=== PATIENT | female | born 1945 | race American Indian/Alaskan Native ===

== ENCOUNTER 2016-08-30 18:07 | Emergency (ER) | payer MEDICARE ==
[2016-08-30 18:45] VITALS: BP 145/86
--- NOTE | 2016-08-30 19:21 | UC ---
Minor Trauma HPI - HPI Summary HPI Summary: 71 yo female tripped and fell in living room this afternoon no LOC c/o left cheek pain and left knee pain no neck pain - History of Current Complaint Chief Complaint: UCHeadInjury Stated Complaint: FACIAL INJURY S/P FALL Time Seen by Provider: 08/30/16 19:05 Hx Obtained From: Patient Onset/Duration: Sudden Onset, Lasting Hours Onset Of Pain: Immediate Severity Initially: Moderate Severity Currently: Moderate Pain Intensity: 4 Pain Scale Used: 0-10 Numeric Mechanism Of Injury: Fall From A Standing Position Aggravating Factor(s): Ambulation Alleviating Factor(s): Rest Associated Signs And Symptoms: Positive: Ecchymosis, Swelling - Allergies/Home Medications Allergies/Adverse Reactions: Allergies Allergy/AdvReac Type Severity Reaction Status Date / Time Morphine Allergy Hives Verified 08/30/16 18:45 Penicillins AdvReac Intermediate See Comment Verified 08/30/16 18:45 PMH/Surg Hx/FS Hx/Imm Hx Previously Healthy: No Cancer History: Other Other Cancer History: renal/thyroid - Surgical History Surgical History: Yes Surgery Procedure, Year, and Place: 1994 RIGHT NEPHRECTOMY- [facility]. 2010 THYROID REMOVAL- [facility]. 1988 GALL BLADDER REMOVAL. BLADDER NECK LIFT- [facility]. HYSTERECTOMY/ APPENDECTOMY-[facility] - Social History Alcohol Use: None Substance Use Type: None Smoking Status (MU): Former Smoker Amount Used/How Often: 1 PPD/ 10 YEARS When Did the Patient Quit Smoking/Using Tobacco: AGE 29 Review of Systems Constitutional: Negative Skin: Bruising Eyes: Negative ENT: Negative Respiratory: Negative Cardiovascular: Negative Gastrointestinal: Negative Genitourinary: Negative Motor: Negative Neurovascular: Negative Musculoskeletal: Arthralgia Neurological: Negative Psychological: Negative All Other Systems Reviewed And Are Negative: Yes Physical Exam Triage Information Reviewed: Yes Appearance: Well-Appearing, No Pain Distress, Well-Nourished Vital Signs: Initial Vital Signs Temp 98.5 F 08/30/16 18:38 Pulse 82 08/30/16 18:38 Resp 18 08/30/16 18:38 BP 145/86 08/30/16 18:38 Pulse Ox 98 08/30/16 18:38 Vital Signs Reviewed: Yes Eyes: Positive: Conjunctiva Clear, Other: - perrl/eomi ENT: Positive: Hearing grossly normal, TMs normal. Negative: Nasal congestion, Nasal drainage Dental Exam: Normal - now jaw malocclusion Dental: Negative: Dental Fracture @ Neck: Positive: Supple, Nontender, No Lymphadenopathy Respiratory: Positive: Lungs clear, Normal breath sounds, No respiratory distress, No accessory muscle use Cardiovascular: Positive: RRR, Pulses Normal. Negative: Tachycardia, Bradycardia Neurological: Positive: Alert, Other: - cn2-12 intact, GCS 15/15, strenght 5/5 Psychological Exam: Normal Skin Exam: Other - lac left cheek, large hematoma Procedures - Laceration/Wound Repair 1 Location: face Description: Linear Betadine Prep?: No Irrigated w/ Saline (ccs): 60 Laceration/Wound Explored: clean Closure: SteriStrips Minor Trauma Course/Dx - Differential Dx/Diagnosis Provider Diagnoses: fall. left facial hematoma. left cheek laceration (steri strip repair). left knee contusion Discharge - Discharge Plan Condition: Stable Disposition: HOME Patient Education Materials: Contusion in Adults (ED), Steristrips (ED), Hematoma (ED) Referrals: Cedric Sandoval MD [Primary Care Provider] - Additional Instructions: return for any problems call for any questions you may gently remove the steristrips in a week if they are still on Images Head: 1 - lg hematoma 2 - lac Front/Back of Body, Lg (Chaves): 1 - tender
--- NOTE | 2016-08-30 20:41 | RAD ---
Indication: Soft tissue swelling at the LEFT cheek and malar eminence following injury. Comparison: No relevant prior exams available on the [facility] [place] for comparison. Technique: AP, [place], [place], lateral views of the skull. Report: The orbital margins, maxillary sinus margins, and zygomatic arches appear intact. Unremarkable nasal bones on the lateral view. Normal alignment of the jaws. Dental amalgam. Normally aerated paranasal sinuses. IMPRESSION: No maxillofacial fracture evident.
--- NOTE | 2016-08-30 20:43 | RAD ---
Indication: LEFT knee abrasions and soft tissue swelling following injury. Comparison: No relevant prior exams available on the [facility] PACS for comparison. Technique: LEFT knee: AP, tunnel, crosstable lateral, sunrise views. Report: Normal alignment. Negative for effusion or fracture. Negative for joint space narrowing or other arthropathic change. Unremarkable soft tissue contours. Bone density appears decreased throughout. Suggestion of diffuse skeletal muscle atrophy. IMPRESSION: 1. No traumatic injury evident. 2. Bone density appears decreased throughout. Consider follow-up DEXA scan if not previously performed.
== END 2016-08-30 20:35 | disposition home or self-care (01) ==
LOC: UCCORT 18:07
DX: S01.412A Laceration without foreign body of left cheek and temporomandibular area, initial encounter (principal); W01.0XXA Fall on same level from slipping, tripping and stumbling without subsequent striking against object, initial encounter; Y93.9 Activity, unspecified; Y92.9 Unspecified place or not applicable; Y99.9 Unspecified external cause status; S80.02XA Contusion of left knee, initial encounter; S00.83XA Contusion of other part of head, initial encounter; Y92.018 Other place in single-family (private) house as the place of occurrence of the external cause; Z90.5 Acquired absence of kidney; Z87.891 Personal history of nicotine dependence; E89.0 Postprocedural hypothyroidism
CPT/HCPCS: 12011; 70150; 99211; 99212; G0463

== ENCOUNTER 2018-04-04 14:02 | Inpatient (IN) | payer MEDICARE ==
--- OUTSIDE RECORDS SUMMARY | 2018-04-04 15:06 | XMS REPORT | Continuity of Care Document ---
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 Cedric Sandoval MD Primary Care Physician Unavailable Payers Type Date Identification Numbers Payment Provider Subscriber Policy Number: [id number] [employer] [facility] Emmaleslee Cronin PayID: [id number] [address] [address] [place] [address] Advance Directives Description No Information Available Problems Date Description Provider Status Onset: 01/05/2017 Benign essential hypertension Palma Cotto MD Active Onset: 01/23/2018 Chronic systolic (congestive) Tyree Claros M.D., Active heart failure FACC Onset: 01/23/2018 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., Active FACC Onset: 05/02/2017 Other cardiomyopathies Mulugeta Bowens PA Active Onset: 05/02/2017 Paroxysmal atrial fibrillation Mulugeta Bowens PA Active Onset: 05/02/2017 Acute on chronic systolic heart Mulugeta Bowens PA Active failure Family History Date Family Member(s) Problem(s) Comments Father CHF Mother Alzheimer's Disease Social History Type Date Description Comments Sex Unknown Lives With Diet Patient follows no dietary restrictions ADL's/IADL's Independent with all ADL's Tobacco Use Start: Unknown End: Unknown Former Cigarette Smoker 2 years Smoking Status Reviewed: 03/14/18 Former Cigarette Smoker 2 years ETOH Use Denies alcohol use Allergies, Adverse Reactions, Alerts Date Description Reaction Status Severity Comments 01/05/2017 Penicillin yeast infection Active 01/05/2017 Morphine Urticaria Active Medications Medication Date Status Form Strength Qnty SIG Indications Ordering Provider Losartan 03/14/ Active Tablets 25mg 30tabs 1 by mouth Lili Cotto 2018 every day MD Palma Levothyroxine 02/03/ Active Tablets 137mcg 30tabs 1 tab daily Jaime Cotto 2018 in am at MD Palma least 30 min before breakfast Bisoprolol 07/15/ Active Tablets 5mg 45tabs 1/2 by Yadiel Fumarate 2018 mouth every MD Palma day at bedtime Fish Oil / Active Capsules 1000mg by mouth Unknown 0000 every day Vitamin D3 / Active Capsules 5000Unit 1 by mouth Unknown 0000 three times daily Vitamin C / Active Tablets 1000mg 1 tsp Unknown 0000 three times daily Red Yeast Rice / Active Capsules 1140mg 1 po twice Unknown 0000 daily Flax Seed Oil / Active Capsules 2000mg 1 po daily Unknown 0000 Vitamin B-12 / Active Tablets 500mcg 2 drops Unknown 0000 Sub daily Frankincense / Active Oil 4 drops Unknown Uplifting 0000 daily Iodine Strong / Active Solution 3 drops Unknown (Lugol's) 0000 daily in tea Bovine Thyroid / Active 130mg 1 po every Unknown 0000 other day Metformin HCL / Active Tablets 1000mg 1 by mouth Unknown 0000 twice daily Magnesium / Active Tablets 250mg 1 tabs by Unknown 0000 mouth tid Lysine / Active Capsules 500mg 1 capsule Unknown 0000 three times weekly. Zinc / Active Tablets 25mg 1 po three Unknown 0000 times daily Spirulina / Active Tablets 800mg 1 po three Unknown 0000 times daily Cranberry / Active Tablets 1 po three Unknown 0000 times daily Vitamin E / Active Capsules 400Iu 1 tid daily Unknown Complete 0000 Melatonin + / Active Capsules 6mg 2 daily Unknown L-Theanine 0000 Liothyronine / Active Tablets .15mcg take one Unknown Sodium 0000 daily Furosemide / Active Tablets 20mg 4 tab by I50.23 Unknown 0000 mouth in the morning with 2 extra tablet at noon as needed for weight gain >3 lbs or edema I42.8 Losartan Potassium 09/22/2017 Hx Tablets 50mg 14tabs 1 by mouth I42.8 Mirna Mera 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, 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, 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 I42.8 Valsartan 09/20/2017 - Hx Tablets 40mg 60tabs 1 by mouth I42.8 Tyree Claros 09/22/2017 twice daily Rashaun Pena, [facility] I42.8 Bisoprolol 05/10/2017 - Hx Tablets 10mg 45tabs 1/2 tab by Yadiel, Jhonatan 07/15/2017 mouth every MD Palma night at bedtime Bisoprolol 05/04/2017 - Hx Tablets 5mg 90tabs 1/2 by mouth Jhonatan Cotto 05/10/2017 twice daily MD Palma Furosemide 05/02/2017 Hx Tablets 20mg 180tabs 2 tab by I50.2 tato Claros in the 3 Tyree M., morning Rashaun, [facility] I42.8 Entresto 05/02/2017 Hx Tablets 24-26mg 180tabs 1 by mouth I50.23 Palma Cotto MD twice daily I42.8 Ranexa 03/23/2017 Hx Tablets ER 500mg 180tabs 1 by mouth Yadiel, 12HR twice a MD Palma day Metformin HCL Hx Tablets 850mg take one Unknown tablet by mouth twice a day Valsartan - Hx Tablets 40mg 1 by mouth I50 Unknown 05/02/2017 every day .23 Vitamin D-3 Hx Capsules 1000Unit 1 by mouth Unknown every day Calcium + D Hx Chewtabs 500-1000 3 daily Unknown -40mg-Un t-mcg Levothyroxine - Hx Tablets 150mcg 1 by mouth Unknown Sodium 02/03/2018 every day Onguard Hx Unknown Azithromycin Hx Tablets 250mg 2 tabs by Unknown mouth today, then one tab by mouth daily Thyronine Hx Unknown Furosemide - Hx Tablets 20mg 1 tab by I50 Unknown 05/02/2017 mouth in .23 the morning as needed for edema or weight gain >1 lb Valsartan Hx Tablets 40mg 1 by mouth Unknown every day Entresto Hx Tablets 24-26mg 1 by mouth I50 Unknown daily .23 I42.8 Milk Of Hx Suspension 1500mg/15ML 30 milliliters Unknown Magnesia by mouth three times daily Colostrum Hx Capsules 500mg 1 po tid daily Unknown Entresto - Hx Tablets 24-26mg 1 by mouth twice I42. Unknown 09/20/2017 daily 8 I42.8 Valsartan Hx Tablets 40mg 1 by mouth every Unknown day Losartan Potassium Hx Tablets 50mg 1 by mouth every Unknown day Valsartan - Hx Tablets 40mg 1 by mouth every Unknown 01/30/2018 day Immunizations Description No Information Available Vital Signs Date Vital Result Comment 03/14/2018 10:41am BP Systolic Sitting Left Arm 142 mmHg BP Diastolic Sitting Left Arm 62 mmHg Heart Rate 57 /min Respiratory Rate 15 /min Height 65 inches 5'5" Weight 109.00 lb BMI (Body Mass Index) 18.1 kg/m2 BSA (Body Surface Area) 1.53 m2 [place] body weight in kilograms 57 kg O2 Saturation Level with Exercise 95 % 01/31/2018 10:00am BP Systolic Sitting Right Arm 112 mmHg BP Diastolic Sitting Right Arm 54 mmHg Heart Rate 65 /min Respiratory Rate 36 /min Height 65 inches 5'5" Weight 108.00 lb BMI (Body Mass Index) 18.0 kg/m2 BSA (Body Surface Area) 1.52 m2 [place] body weight in kilograms 57 kg O2 % BldC Oximetry 97 % Ora 01/23/2018 3:17pm BP Systolic Sitting Right Arm 138 mmHg BP Diastolic Sitting Right Arm 64 mmHg Heart Rate 62 /min Respiratory Rate 18 /min Height 65 inches 5'5" Weight 109.00 lb BMI (Body Mass Index) 18.1 kg/m2 BSA (Body Surface Area) 1.53 m2 [place] body weight in kilograms 57 kg O2 % BldC Oximetry 97 % O2 Saturation Level with Exercise 95 % 11/01/2017 2:36pm BP Systolic Sitting Left Arm 118 mmHg BP Diastolic Sitting Left Arm 48 mmHg Heart Rate 67 /min Respiratory Rate 18 /min Height 65 inches 5'5" Weight 105.00 lb BMI (Body Mass Index) 17.5 kg/m2 BSA (Body Surface Area) 1.50 m2 [place] body weight in kilograms 57 kg O2 % BldC Oximetry 97 % 09/20/2017 1:27pm BP Systolic Sitting Right Arm 124 mmHg BP Diastolic Sitting Right Arm 60 mmHg Heart Rate 69 /min Respiratory Rate 14 /min Height 65 inches 5'5" Weight 106.00 lb BMI (Body Mass Index) 17.6 kg/m2 BSA (Body Surface Area) 1.51 m2 [place] body weight in kilograms 57 kg O2 % BldC Oximetry 98 % Room air 08/23/2017 2:22pm BP Systolic Sitting Left Arm 126 mmHg BP Diastolic Sitting Left Arm 66 mmHg Heart Rate 74 /min Respiratory Rate 14 /min Height 65 inches 5'5" Weight 109.00 lb BMI (Body Mass Index) 18.1 kg/m2 BSA (Body Surface Area) 1.53 m2 [place] body weight in kilograms 57 kg O2 % BldC Oximetry 98 % 06/14/2017 1:58pm BP Systolic Sitting Left Arm 130 mmHg BP Diastolic Sitting Left Arm 62 mmHg Heart Rate 72 /min Respiratory Rate 14 /min Height 65 inches 5'5" Weight 107.00 lb BMI (Body Mass Index) 17.8 kg/m2 BSA (Body Surface Area) 1.52 m2 [place] body weight in kilograms 57 kg 05/10/2017 2:51pm BP Systolic Sitting Left Arm 142 mmHg BP Diastolic Sitting Left Arm 66 mmHg Heart Rate 72 /min Respiratory Rate 16 /min Height 65 inches 5'5" Weight 109.00 lb BMI (Body Mass Index) 18.1 kg/m2 BSA (Body Surface Area) 1.53 m2 [place] body weight in kilograms 57 kg 05/02/2017 10:36am BP Systolic Sitting Left Arm 139 mmHg BP Diastolic Sitting Left Arm 70 mmHg Heart Rate 79 /min Respiratory Rate 18 /min Height 65 inches 5'5" Weight 108.00 lb BMI (Body Mass Index) 18.0 kg/m2 BSA (Body Surface Area) 1.52 m2 [place] body weight in kilograms 57 kg 04/13/2017 9:39am BP Systolic Sitting Left Arm 138 mmHg BP Diastolic Sitting Left Arm 68 mmHg Heart Rate 80 /min Respiratory Rate 16 /min Weight 106.00 lb 03/04/2017 2:26pm BP Systolic Sitting Left Arm 118 mmHg BP Diastolic Sitting Left Arm 62 mmHg Heart Rate 80 /min Respiratory Rate 16 /min Weight 106.00 lb 02/09/2017 3:13pm BP Systolic Sitting Left Arm 150 mmHg BP Diastolic Sitting Left Arm 68 mmHg Heart Rate 80 /min Respiratory Rate 16 /min Weight 104.00 lb 01/05/2017 11:35am BP Systolic Sitting Right Arm 152 mmHg BP Diastolic Sitting Right Arm 68 mmHg Respiratory Rate 16 /min Weight 110.00 lb Results Test Date Facility Test Result H/L Range Note Basic Metabolic 01/31/2018 [facility] Glucose 277 mg/dL High 74-106 1 Panel [address] [place] [address] [phone] BUN 33 mg/dL High 7-18 Creatinine 1.3 mg/dL N 0.6-1.3 Glom Filtration Rate, Estimate 43 mL/min >60 If 52 mL/min >60 2 BUN/Creat 25.3 ratio Sodium 134 mmol/L Low 136-145 Potassium 5.0 mmol/L N 3.5-5.1 Chloride 97 mmol/L Low 98-107 Carbon Dioxide 32 mmol/L N 21-32 Anion Gap 5 mEq/L Low 8-16 Calcium 9.9 mg/dL N 8.5-10.1 Laboratory test 01/31/2018 [facility] Free T4 1.59 ng/dL High 0.76-1.[address] [place] [address] [phone] Free T3 3.95 pg/mL N 2.18-3.98 Laboratory test 01/30/2018 [facility] Thyroid Stim < 0.01 Low 0.30-4.20 [address] Hormone uIU/[place] [address] [phone] CBC W/Automated 01/30/2018 [facility] White Blood 5.7 K/uL N 3.1-10.[address] [place] [address] [phone] Red Blood Count 4.34 M/uL N 3.90-5.40 Hemoglobin 12.7 gm/dL N 11.6-15.8 Hematocrit 39.5 % N 36.0-46.1 Mean Cell Volume 91.0 fl N 80.9-99.0 Mean Corpuscular HGB 29.3 pg N 25.9-32.7 Mean Corpuscular HGB Conc 32.2 g/dL N 30.8-34.3 Platelet Count 415 K/uL High 155-360 Red Cell Distri Width SD 45.6 fl N 3-47 Red Cell Distri Width %CV 14.0 % N 11.7-14.4 Mean Platelet Volume 10.0 fL N 8.9-12.4 Neut% 76.1 % High 40.4-72.8 Lymph % 13.7 % Low 20.0-42.0 Hartley % 7.9 % N 4.3-13.2 Eo% 1.6 % N 0.0-6.6 Bas% 0.7 % N 0.0-1.1 Neut# 4.33 K/uL N 1.8-7.0 Lymph # 0.78 K/uL Low 1.0-4.0 Hartley # 0.45 K/uL N 0.3-0.9 Eos # 0.09 K/uL N 0.0-0.5 Baso # 0.04 K/uL N 0.0-0.1 Basic Metabolic Panel 01/30/2018 [facility] Glucose 315 mg/dL High 74-106 [address] [place] [address] [phone] BUN 30 mg/dL High 7-18 Creatinine 1.3 mg/dL N 0.6-1.3 Glom Filtration Rate, Estimate 43 mL/min >60 If 52 mL/min >60 4 BUN/Creat 23.0 ratio Sodium 133 mmol/L Low 136-145 Potassium 5.4 mmol/L High 3.5-5.1 Chloride 97 mmol/L Low 98-107 Carbon Dioxide 31 mmol/L N 21-32 Anion Gap 5 mEq/L Low 8-16 Calcium 9.9 mg/dL N 8.5-10.1 Basic Metabolic Panel 10/19/2017 [facility] Glucose 260 mg/dL High 74-106 [address] [place], [place] [id number] [phone] BUN 34 mg/dL High 7-18 Creatinine 1.3 mg/dL N 0.6-1.3 Glom Filtration Rate, Estimate 43 mL/min >60 If 52 mL/min >60 5 BUN/Creat 26.1 ratio Sodium 139 mmol/L N 136-145 Potassium 4.7 mmol/L N 3.5-5.1 Chloride 99 mmol/L N 98-107 Carbon Dioxide 30 mmol/L N 21-32 Anion Gap 10 mEq/L N 8-16 Calcium 8.5 mg/dL N 8.5-10.1 Laboratory test 10/19/2017 [facility] Magnesium 2.2 mg/dL N 1.8-2.4 finding [address] [place] [address] [phone] Basic Metabolic 08/25/2017 [facility] Glucose 170 mg/dL High 74-106 Panel [address] [place] [address] [phone] BUN 30 mg/dL High 7-18 Creatinine 1.2 mg/dL N 0.6-1.3 Glom Filtration Rate, Estimate 47 mL/min >60 If 57 mL/min >60 6 BUN/Creat 25.0 ratio Sodium 137 mmol/L N 136-145 Potassium 5.1 mmol/L N 3.5-5.1 Chloride 101 mmol/L N 98-107 Carbon Dioxide 27 mmol/L N 21-32 Anion Gap 9 mEq/L N 8-16 Calcium 9.0 mg/dL N 8.5-10.1 Laboratory test 08/25/2017 [facility] Magnesium 2.5 mg/dL High 1.8-2.4 finding [address] [place] [address] [phone] Basic Metabolic 06/27/2017 [facility] Glucose 168 mg/dL High 74-106 7 Panel [address] [place] [address] [phone] BUN 20 mg/dL High 7-18 Creatinine 1.0 mg/dL N 0.6-1.3 Glom Filtration Rate, Estimate 58 mL/min >60 If >60 mL/min >60 8 BUN/Creat 20.0 ratio Sodium 136 mmol/L N 136-145 Potassium 5.3 mmol/L High 3.5-5.1 Chloride 98 mmol/L N 98-107 Carbon Dioxide 29 mmol/L N 21-32 Anion Gap 9 mEq/L N 8-16 Calcium 9.7 mg/dL N 8.5-10.1 Laboratory test 06/27/2017 [facility] Magnesium 2.2 mg/dL N 1.8-2.4 finding [address] [place] [address] [phone] Basic Metabolic 05/02/2017 [facility] Glucose 130 mg/dL High 74-106 9 Panel [address] [place] [address] [phone] BUN 17 mg/dL N 7-18 Creatinine 1.0 mg/dL N 0.6-1.3 Glom Filtration Rate, Estimate 58 mL/min >60 If >60 mL/min >60 10 BUN/Creat 17.0 ratio Sodium 138 mmol/L N 136-145 Potassium 4.9 mmol/L N 3.5-5.1 Chloride 104 mmol/L N 98-107 Carbon Dioxide 27 mmol/L N 21-32 Anion Gap 7 mEq/L Low 8-16 Calcium 9.5 mg/dL N 8.5-10.1 Laboratory test 05/02/2017 [facility] Magnesium 2.2 mg/dL N 1.8-2.4 finding [address] [place] [address] [phone] Ua RFX Micro & 03/16/2017 [facility] Urine Color YELLOW Yellow 11 Culture II [address] [place] [address] [phone] Urine Clarity CLEAR Clear Urine Glucose - Dipstick NEGATIVE mg/dL Negative Urine Bilirubin - Dipstick NEGATIVE Negative Urine Ketone NEGATIVE mg/dL Negative Urine Specific [place] <=1.005 Low 1.010-1.030 Urine Blood NEGATIVE Negative Urine PH 5.5 Low 6.5-7.5 Urine Protein - Dipstick NEGATIVE mg/dL Negative Urine Urobilinogen - Dipstick 0.2 E.U./dL N 0.2-1.0 Urine Nitrite - Dipstick NEGATIVE Negative Urine Leuk Esterase NEGATIVE Negative Source: URINE, CLEAN CAT <SEE NOTE> 12 Laboratory test finding 03/16/2017 [facility] Magnesium 2.2 mg/dL N 1.8-2.4 [address] [place] [address] [phone] Thyroid Stim Hormone < 0.01 uIU/mL Low 0.30-4.20 NT-proBNP 22240.0 pg/mL High <125 Comprehensive Metabolic 03/16/2017 [facility] Glucose 121 mg/dL High 74-106 Panel [address] [place] [address] [phone] BUN 35 mg/dL High 7-18 Creatinine 0.9 mg/dL N 0.6-1.3 Glom Filtration Rate, Estimate >60 mL/min >60 If >60 mL/min >60 13 BUN/Creat 38.8 ratio Sodium 138 mmol/L N 136-145 Potassium 5.0 mmol/L N 3.5-5.1 Chloride 106 mmol/L N 98-107 Carbon Dioxide 25 mmol/L N 21-32 Anion Gap 7 mEq/L Low 8-16 Calcium 9.5 mg/dL N 8.5-10.1 Total Protein 7.2 g/dL N 6.4-8.2 Albumin 3.4 g/dL N 3.4-5.0 Globulin 3.8 g/dL N 1.9-4.3 Alb/Glob 0.9 ratio Bilirubin,Total 0.3 mg/dL N 0.2-1.0 Sgot/Ast 16 U/L N 15-37 SGPT/Alt 33 U/L N 12-78 Alkaline Phosphatase 167 U/L High 45-117 CBS W/Automated Diff 03/16/2017 [facility] White Blood 5.9 K/uL N 3.1-10.[address] [place], [place] [id number] [phone] Red Blood Count 4.10 M/uL N 3.90-5.40 Hemoglobin 11.3 gm/dL Low 11.6-15.8 Hematocrit 35.3 % Low 36.0-46.1 Mean Cell Volume 86.1 fl N 80.9-99.0 Mean Corpuscular HGB 27.6 pg N 25.9-32.7 Mean Corpuscular HGB Conc 32.0 g/dL N 30.8-34.3 Platelet Count 400 K/uL High 155-360 Red Cell Distri Width SD 49.5 fl High 3-47 Red Cell Distri Width %CV 16.1 % High 11.7-14.4 Mean Platelet Volume 9.6 fL N 8.9-12.4 Neut% 76.1 % High 40.4-72.8 Lymph % 14.5 % Low 20.0-42.0 Hartley % 7.7 % N 4.3-13.2 Eo% 1.2 % N 0.0-6.6 Bas% 0.5 % N 0.0-1.1 Neut# 4.45 K/uL N 1.8-7.0 Lymph # 0.85 K/uL Low 1.0-4.0 Hartley # 0.45 K/uL N 0.3-0.9 Eos # 0.07 K/uL N 0.0-0.5 Baso # 0.03 K/uL N 0.0-0.1 CBC + Diff, Plat Count 02/18/2017 [facility] WBC Num Bld Auto 6.0 10*3/ uL 4-10 RBC Num Bld Auto 3.83 10*6/uL Low 4.1-5.3 Hgb Bld-mCnc 10.7 g/dL Low 11.5-15.5 Hct VFr Bld Auto 32.7 % Low 36-45 MCV RBC Auto 85.4 fL 80-96 MCH RBC Qn Auto 27.9 pg 27-33 MCHC RBC Auto-mCnc 32.7 g/dL 32.0-36.0 RDW RBC Auto-Rto 16.3 % High 11.5-14.5 Platelet Num Bld Auto 371 10*3/uL 150-400 Differential method Bld Automated Diff Neutrophils/leuk NFr Bld Auto 78 % High 33-73 Lymphocytes/leuk NFr Bld Auto 13 % 13-52 Monocytes/leuk NFr Bld Auto 8 % 0-11 Eosinophil/leuk NFr Bld Auto 1 % 0-5 Basophils/leuk NFr Bld Auto 0 % 0-2 Neutrophils Num Bld Auto 4.60 10*3/uL 1.8-7.0 Lymphocytes Num Bld Auto 0.80 10*3/uL Low 1.2-4.0 Monocytes Num Bld Auto 0.50 10*3/uL 0-0.8 Eosinophil Num Bld Auto 0.10 10*3/uL 0-0.5 Basophils Num Bld Auto 0.00 10*3/uL 0-0.2 Comprehensive Metabolic 02/18/2017 [facility] Albumin SerPl 4.1 g/dL 3.5-5.2 Hill BCG-mCnc Bilirub SerPl-mCnc 0.3 mg/dL <1.2 Calcium SerPl-mCnc 9.9 mg/dL 8.8-10.2 Chloride SerPl-sCnc 99 mmol/L 98-107 Creat SerPl-mCnc 1.15 mg/dL High 0.4-1.0 Glucose SerPl-mCnc 140 mg/dL 70-140 Alp SerPl-cCnc 189 U/L High 35-104 Potassium SerPl-sCnc 4.9 mmol/L 3.5-5.1 Prot SerPl-mCnc 6.3 g/dL Low 6.4-8.3 Sodium SerPl-sCnc 139 mmol/L 136-145 Ast SerPl-cCnc 23 U/L <32 BUN SerPl-mCnc 26 mg/dL High 8-23 Osmolality SerPl Calc 295 mosm/kg 275-300 Creat/Urea nit SerPl 23 Hco3 Ser-sCnc 26 mmol/L 22-29 Alt SerPl-cCnc 35 U/L High <33 Anion Gap3 SerPl-sCnc 14 mmol/L 8-15 Albumin/Glob SerPl 1.9 GFR/Bsa pred.non black SerPl MDRD-ArVRat 47 mL/min/1.73m2 Low >60 GFR/Bsa pred.black SerPl MDRD-ArVRat 54 mL/min/1.73m2 Low >60 1 I42.8 2 Note: Persistent reduction for 3 months or more in an eGFR <60 mL/min/1.73 m2 defines CKD. Patients with eGFR values >/=60 mL/min/1.73 m2 may also have CKD if evidence of persistent proteinuria is present. The original MDRD equation for estimated GFR is not valid for patients less than 18 years of age. Additional information may be found at [email or web address]. 3 I50.22 4 Note: Persistent reduction for 3 months or more in an eGFR <60 mL/min/1.73 m2 defines CKD. Patients with eGFR values >/=60 mL/min/1.73 m2 may also have CKD if evidence of persistent proteinuria is present. The original MDRD equation for estimated GFR is not valid for patients less than 18 years of age. Additional information may be found at www.[email or web address]. 5 Note: Persistent reduction for 3 months or more in an eGFR <60 mL/min/1.73 m2 defines CKD. Patients with eGFR values >/=60 mL/min/1.73 m2 may also have CKD if evidence of persistent proteinuria is present. The original MDRD equation for estimated GFR is not valid for patients less than 18 years of age. Additional information may be found at [email or web address]. 6 Note: Persistent reduction for 3 months or more in an eGFR <60 mL/min/1.73 m2 defines CKD. Patients with eGFR values >/=60 mL/min/1.73 m2 may also have CKD if evidence of persistent proteinuria is present. The original MDRD equation for estimated GFR is not valid for patients less than 18 years of age. Additional information may be found at [email or web address]. 7 I42.8 8 Note: Persistent reduction for 3 months or more in an eGFR <60 mL/min/1.73 m2 defines CKD. Patients with eGFR values >/=60 mL/min/1.73 m2 may also have CKD if evidence of persistent proteinuria is present. The original MDRD equation for estimated GFR is not valid for patients less than 18 years of age. Additional information may be found at [email or web address]. 9 I50.23 10 Note: Persistent reduction for 3 months or more in an eGFR <60 mL/min/1.73 m2 defines CKD. Patients with eGFR values >/=60 mL/min/1.73 m2 may also have CKD if evidence of persistent proteinuria is present. The original MDRD equation for estimated GFR is not valid for patients less than 18 years of age. Additional information may be found at [email or web address]. 11 I50.42 12 URINE, CLEAN CATCH 13 Note: Persistent reduction for 3 months or more in an eGFR <60 mL/min/1.73 m2 defines CKD. Patients with eGFR values >/=60 mL/min/1.73 m2 may also have CKD if evidence of persistent proteinuria is present. The original MDRD equation for estimated GFR is not valid for patients less than 18 years of age. Additional information may be found at [email or web address]. Procedures Date Code Description Status 01/23/2018 27117 EKG-Tracing And Report Completed 09/29/2017 61098 Echocardiogram Complete Completed 05/02/2017 65470 EKG-Tracing And Report Completed 03/22/2017 26483 Echocardiogram Complete Completed 01/13/2017 86268 Echocardiogram Complete Completed 01/13/2017 70879 Event Monitor Inter/Review Only Completed 01/05/2017 27487 EKG-Tracing And Report Completed 07/30/2010 72840 Anesthesia, Neck Organ Surgery Not Otherwise Spec 1Yr Or Completed Older 07/27/2010 08586 EKG Interpretation And Report Only Completed 02/03/2010 41736 Holter Monitor 24HR Inter/Report Completed 11/25/2009 26060 EKG Interpretation And Report Only Completed Encounters Type Date Location Provider Dx Diagnosis Office Visit 03/14/2018 Cardiology Office Palma Cotto MD I42.8 Other cardiomyopathies 10:30a I48.0 Paroxysmal atrial fibrillation R06.02 Shortness of breath Office Visit 01/31/2018 10:00a Cardiology Office Palma Cotto I48.0 Paroxysmal atrial MD fibrillation I42.8 Other cardiomyopathies C65.9 Malignant neoplasm of unspecified renal pelvis R06.02 Shortness of breath Office Visit 01/23/2018 Cardiology [facility] I42.8 Other 2:40p Office Tyree Pena M.D., cardiomyopathies FACC I50.22 Chronic systolic (congestive) heart failure C65.9 Malignant neoplasm of unspecified renal pelvis Office Visit 11/01/2017 Cardiology [place] I42.8 Other cardiomyopathies 2:40p Office Marlyss B., PA I50.22 Chronic systolic (congestive) heart failure I48.0 Paroxysmal atrial fibrillation Office Visit 09/20/2017 1:30p Cardiology Office [place] I50.22 Chronic systolic Marlyss B., (congestive) heart PA failure I42.8 Other cardiomyopathies I48.0 Paroxysmal atrial fibrillation Office Visit 08/23/2017 2:20p Cardiology Office [place] I50.22 Chronic systolic Marlyss B., (congestive) heart PA failure I48.0 Paroxysmal atrial fibrillation I42.8 Other cardiomyopathies Office Visit 06/14/2017 Cardiology [place] I42.8 Other cardiomyopathies 1:40p Office Marlyss B., PA I48.0 Paroxysmal atrial fibrillation I50.22 Chronic systolic (congestive) heart failure Office Visit 05/10/2017 2:30p Cardiology Office Palma Cotto, I50.23 Acute on chronic MD systolic (congestive) heart failure I42.8 Other cardiomyopathies I48.0 Paroxysmal atrial fibrillation Office Visit 05/02/2017 10:20a Cardiology Office [place] I50.23 Acute on chronic Marlyss B., systolic PA (congestive) heart failure I48.0 Paroxysmal atrial fibrillation I42.8 Other cardiomyopathies Office Visit 04/13/2017 9:30a Cardiology Office Palma Cotto, I48.0 Paroxysmal atrial MD fibrillation I50.42 Chronic combined systolic and diastolic hrt fail I42.8 Other cardiomyopathies R23.3 Spontaneous ecchymoses Office Visit 03/04/2017 2:20p Cardiology Office Palma Cotto, I48.0 Paroxysmal atrial MD fibrillation R06.02 Shortness of breath R60.0 Localized edema I50.42 Chronic combined systolic and diastolic hrt fail R23.3 Spontaneous ecchymoses Office Visit 02/09/2017 2:50p Cardiology Office Palma Cotto, I48.0 Paroxysmal atrial MD fibrillation R06.02 Shortness of breath Office Visit 01/05/2017 11:15a Cardiology Office Palma Cotto, R06.02 Shortness of MD breath J90 Pleural effusion, not elsewhere classified C65.9 Malignant neoplasm of unspecified renal pelvis R00.2 Palpitations I10 Essential (primary) hypertension Plan of Treatment Future Appointment(s):05/10/2018 10:30 am - Palma Cotto MD at Cardiology [facility]/14/2018 - Palma Cotto MDI42.8 Other cardiomyopathiesNew Orders: Echocardiogram, Ordered: 03/14/18Comments:She had echo last in 09/2017 with mild cardiomyopathy. Does well with low dose ARB and BB and self adjusting Lasix dose based on swelling. 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 She has been in sinus though and feels good. Continues Bisoprolol. Declined OACR06.02 Shortness of breathComments:Objectively seems improved as on last visit she could not even complete sentence.Seems to be due to response to chemoAllNew Medication:Losartan Potassium 25 mg - 1 by mouth every dayFollow up: 6-8 weeks
[2018-04-04] MEDS: Enoxaparin(*) 30 MG/0.3 ML SYR SUBCUT SCH (17:44)
[2018-04-04] MEDS: NS 0.9% 1000 ML** 1,000 ML IV SCH (17:49)
[2018-04-04] MEDS ORDERED: Zoledronic Acid* 4 MG in NS 0.9% 100 ML* 95 ML IVPB ONE (18:00)
[2018-04-04] MEDS: Melatonin 3 MG TAB PO SCH (20:21)
[2018-04-05] MEDS: NS 0.9% 1000 ML** 1,000 ML IV SCH ×4 (00:51→12:36)
[2018-04-05] MEDS: Levothyroxine TAB* 137 MCG TAB PO SCH (05:50)
[2018-04-05 06:16] LABS: ABS Basophils 0.1 10^3/ul (0-0.2); ABS Eosinophils 0.1 10^3/ul (0-0.6); ABS Lymphocytes 0.6 10^3/ul (1.0-4.8); ABS Monocytes 0.4 10^3/ul (0-0.8); ABS Neutrophils 3.2 10^3/ul (1.5-7.7); ABS Nucleated RBC 0 10^3/ul; Eosinophil % 2.5 %; Hematocrit 32 % (35-47); Hemoglobin 10.7 g/dl (12.0-16.0); Lymphocyte % 14.2 %; Mean Corpuscular HGB Conc 34 g/dl (31-36); Mean Corpuscular Hemoglobin 31 pg (27-31); Mean Corpuscular Volume 90 fL (80-97); Mean Platelet Volume 7.4 fL (7.4-10.4); Nucleated Red Blood Cells % 0; Platelet Count 246 10^3/ul (150-450); Red Blood Count 3.51 10^6/ul (4.00-5.40); Red Cell Distribution Width 15 % (10.5-15); White Blood Count 4.4 10^3/ul (3.5-10.8)
[2018-04-05 06:38] LABS: Albumin 3.5 g/dL (3.2-5.2); Albumin/Globulin Ratio 1.6 (1-3); Calcium 10.6 mg/dL (8.6-10.3); EGFR Non-African American 37.2 (>60); Globulin 2.2 g/dL (2-4); Potassium 4.2 mmol/L (3.5-5.0); Total Bilirubin 0.3 mg/dL (0.2-1.0); Total Protein 5.7 g/dL (6.4-8.9)
[2018-04-05] MEDS: Albuterol 2.5 MG/3 ML NEB.SOL* (0.083%) INH PRN ×2 (07:05→15:29)
[2018-04-05] MEDS: MAGNESIUM OXIDE 250 MG PO SCH (09:20)
[2018-04-05] MEDS: Liothyronine TAB* 5 MCG PO SCH (09:41)
[2018-04-05] MEDS: Bisoprolol TAB* 5 MG PO SCH (09:41)
[2018-04-05] MEDS: Acetaminophen TAB* 325 MG PO PRN ×2 (11:05→18:19)
[2018-04-05] MEDS ORDERED: Iodixanol* (CONTRAST) 320 MG/ML 100 ML SDV IV ONE (12:06)
[2018-04-05] MEDS ORDERED: Furosemide IV* 10 MG/ML 2 ML VIAL (20 MG) IV ONE (15:27)
[2018-04-05] MEDS: Enoxaparin(*) 30 MG/0.3 ML SYR SUBCUT SCH (17:24)
[2018-04-05] MEDS: Melatonin 3 MG TAB PO SCH (20:39)
[2018-04-06] MEDS: NS 0.9% 1000 ML** 1,000 ML IV SCH (00:35)
[2018-04-06] MEDS: Acetaminophen TAB* 325 MG PO PRN ×3 (01:41→11:46)
[2018-04-06] MEDS: Levothyroxine TAB* 137 MCG TAB PO SCH (05:44)
[2018-04-06 06:23] LABS: BUN/Creatinine Ratio 19.7 (8-20); Calcium 9.8 mg/dL (8.6-10.3); EGFR African American 52.3 (>60); EGFR Non-African American 43.2 (>60); Potassium 3.5 mmol/L (3.5-5.0)
[2018-04-06] MEDS: Liothyronine TAB* 5 MCG PO SCH (07:38)
[2018-04-06] MEDS: Bisoprolol TAB* 5 MG PO SCH (07:38)
[2018-04-06] MEDS: MAGNESIUM OXIDE 250 MG PO SCH (07:40)
[2018-04-06 08:10] VITALS: BP 124/43
--- NOTE | 2018-04-06 20:37 | DS ---
CC: Dr. Sandoval * DISCHARGE SUMMARY: DATE OF ADMISSION: 04/04/18 DATE OF DISCHARGE: 04/06/18 PRIMARY CARE PROVIDER: Dr. Sandoval. PRIMARY ONCOLOGIST AND ATTENDING PHYSICIAN: Dr. Taurus Hudson.* (DICTATED BY MOISES CALERO) DISCHARGING PROVIDER: MOISES Calero PRIMARY DISCHARGE DIAGNOSES: 1. 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 2. Metastatic renal cell carcinoma. 3. Hypothyroidism. 4. Wej-asvgifq-tktipzrgc diabetes. 5. Acute kidney injury secondary to hypercalcemia. DISCHARGE MEDICATIONS: 1. Albuterol nebulizer 1 neb inhaled q.6 hours as needed for shortness of breath. 2. Vitamin C 1000 mg p.o. daily. 3. Bisoprolol 2.5 mg p.o. daily. 4. Vitamin B12 1000 mcg sublingual daily. 5. Lasix 20 mg p.o. daily. 6. [place] barriga 550 mg p.o. daily. 7. Liothyronine 5 mcg p.o. daily. 8. Lysine 500 mg p.o. daily. 9. Magnesium oxide 250 mg p.o. daily. 10. Melatonin 3 mg p.o. at bedtime. 11. Metformin 1000 mg p.o. twice daily. 12. Porcine thyroid 125 mcg p.o. daily. 13. Zinc 25 mg p.o. 3 times daily. Medication changes: None. HOSPITAL IMAGIN. Chest x-ray shows cardiomegaly with multiple pulmonary nodules. 2. CT chest, abdomen and pelvis shows progressive of mediastinal and hilar lymphadenopathy as well as stable pulmonary parenchymal nodules and stable hepatic metastatic disease as well as stable mesenteric masses consistent with metastatic disease including a mass in the lesser sac with mass effect upon the pancreatic head and associated biliary dilatation. HOSPITAL COURSE: This is a 72-year-old female with metastatic renal cell carcinoma, who recently started treatment with nivolumab, receiving her first cycle on 03/17/18. She was seen by Dr. Hudson in oncology clinic for routine followup and expressed significant fatigue and weakness at that time. Her exam was nonfocal and routine labs were drawn, which demonstrated hypercalcemia with calcium of 13.5. These results were reported overnight and the patient was asked to come back to the clinic the following day for repeat labs and evaluation. Repeat labs upon arrival showed a calcium of 12.9. The patient was subsequently admitted for further evaluation and management. She received IV fluids and 1 dose of IV Zometa with improvement in her calcium, which was 9.8 at the time of discharge. Her weakness resolved back to baseline and the patient was independent with transfers and ambulation when evaluated by Physical Therapy prior to discharge. In terms of the etiology of her hypercalcemia, it was thought to either be due to bony destruction from her malignancy versus a paraneoplastic process. Her PTH was measured and suppressed initially supporting more of a picture of bony destruction causing hypercalcemia. A CT chest, abdomen and pelvis was completed , which did not show any significant bony disease. Her PTHrP was added on to labs and pending at the time of discharge, but this seems to favor a paraneoplastic process. DISPOSITION AND FOLLOWUP PLAN: The patient is being discharged to home. No changes made to her above medications. She will follow up on 04/10/18, for her second cycle of nivolumab and repeat labs at that time. We will plan on measuring serial BMPs on a weekly basis to monitor for recurrent hypercalcemia. MOISES CALERO [id number]/[facility] #: [id number] KATELYN
== END 2018-04-06 12:15 | disposition home or self-care (01) | DRG 641 ==
LOC: MED 15:02
PROVIDERS: ADMIT Internal Medicine Hematology & Oncology; ATTEND Internal Medicine Hematology & Oncology
DX: E83.52 Hypercalcemia (principal); C64.9 Malignant neoplasm of unspecified kidney, except renal pelvis; C78.7 Secondary malignant neoplasm of liver and intrahepatic bile duct; C78.1 Secondary malignant neoplasm of mediastinum; C78.00 Secondary malignant neoplasm of unspecified lung; E03.9 Hypothyroidism, unspecified; E11.9 Type 2 diabetes mellitus without complications; Z66 Do not resuscitate; C78.89 Secondary malignant neoplasm of other digestive organs; N17.9 Acute kidney failure, unspecified; C78.6 Secondary malignant neoplasm of retroperitoneum and peritoneum; Z88.5 Allergy status to narcotic agent; Z88.0 Allergy status to penicillin; Z79.84 Long term (current) use of oral hypoglycemic drugs; Z90.49 Acquired absence of other specified parts of digestive tract; Z90.710 Acquired absence of both cervix and uterus
CPT/HCPCS: 36415; 71046; 71260; 74177; 80048; 80053; 82397; 85025; 94640; 99222; 99239; A9270-GY; G8978-GP-CH; G8979-GP-CH; G8980-GP-CH; J1642; J1650; J1940; J3489; Q9967

== ENCOUNTER 2018-05-14 11:15 | Inpatient (IN) | payer MEDICARE, OTHER ==
--- NOTE | 2018-05-14 11:18 | ED ---
GI/ HPI - HPI Summary HPI Summary: A 73 y/o F brought in by ambulance with nurse as transfer from [facility] presents to ED with hematemesis 3x since 0200. Pt was given 2 units blood and Protonix [employer]. BP was stable en route. Associated sx: black stool, nausea. Denies pain. Pt has renal CA that has metastasized to her liver, pancreas, abdomen, lungs, thyroid. Pt is a DNR. She sees Dr. Hudson, oncology. Shes on immunotherapy. ABD/PEL CT without contrast as read by radiologist at [facility] at 07:21 this date: IMPRESSION: Confluent pancreatic and hepatic masses. Multiple pulmonary nodules. Bulky R retroperitoneal mass. Findings are consistent with neoplasm/ metastatic disease. Cardiomegaly. Small pericardial effusion. - History of Current Complaint Stated Complaint: VOMITIN BLOOD PER EMS Hx Obtained From: Patient, EMS, Medical Records Onset/Duration: Started Hours Ago, Still Present Current Severity: Severe Associated Signs and Symptoms: Positive: Nausea, Black Tarry Stool, Other: - neg : pain - Additional Pertinent History Primary Care Physician: JOSHUA - Allergy/Home Medications Allergies/Adverse Reactions: Allergies Allergy/AdvReac Type Severity Reaction Status Date / Time morphine Allergy Hives Verified 12/08/17 06:36 Penicillins Allergy Unknown Verified 12/08/17 06:36 Reaction Details Home Medications: Home Medications Blue-Green Algae [Spirulina] 800 mg PO TID 05/14/18 [History Confirmed 05/14/18] Cholecalciferol (Vitamin D3) [Vitamin D3] 5,000 unit PO TID 05/14/18 [History Confirmed 05/14/18] Flaxseed Oil [Rosman-3 Flaxseed Oil] 2,000 mg PO DAILY 05/14/18 [History Confirmed 05/14/18] Higganum [Higganum Carr] 900 mg PO DAILY 05/14/18 [History Confirmed 05/14/18] Levothyroxine TAB* [Synthroid TAB*] 137 mcg PO DAILY 05/14/18 [History Confirmed 05/14/18] Rosman-3 Fatty Acids/Fish Oil [Rosman 3] 1 cap PO DAILY 05/14/18 [History Confirmed 05/14/18] Red Yeast Rice 2 tab PO DAILY 05/14/18 [History Confirmed 05/14/18] Vitamin E Mixed [E400 Mixed] 400 unit PO TID 05/14/18 [History Confirmed ] Zinc 25 mg PO TID 05/14/18 [History Confirmed 05/14/18] PMH/Surg Hx/FS Hx/Imm Hx Previously Healthy: No Endocrine/Hematology History: Reports: Hx Diabetes - METFORMIN AND GLIPIZIDE, Hx Thyroid Disease - PREVIOUS CANCER IN THYROID- ON MED Cardiovascular History: Reports: Hx Hypertension - ON MED BECAUSE OF RIGHT NEPHRECTOMY Denies: Hx Pacemaker/ICD Respiratory History: Reports: Other Respiratory Problems/Disorders - METASTATIC CANCER NOW IN LUNGS Denies: Hx Asthma - CA in lungs per PT, Hx Chronic Obstructive Pulmonary Disease (COPD) GI History: Reports: Other GI Disorders - PREVIOUS CANCER ON BACK WALL OF STOMACH- REMOVED History: Reports: Hx Renal Disease Denies: Hx Dialysis Musculoskeletal History: Reports: Hx Arthritis - ALL OVER Sensory History: Reports: Hx Contacts or Glasses Denies: Hx Cataracts, Hx Glaucoma, Hx Hearing Aid Opthamlomology History: Reports: Hx Contacts or Glasses Denies: Hx Cataracts, Hx Glaucoma Psychiatric History: Denies: Hx Panic Disorder - Cancer History Cancer Type, Location and Year: renal cell carcinoma- spread to pancreas, thyroid Hx Chemotherapy: No - Surgical History Surgery Procedure, Year, and Place: 1994 RIGHT NEPHRECTOMY- [facility]. 2009 THYROID REMOVAL- [facility]. 1987 GALL BLADDER REMOVAL. BLADDER NECK LIFT- [facility]. HYSTERECTOMY/ APPENDECTOMY-[facility] Hx Anesthesia Reactions: No Infectious Disease History: Reports: Hx Shingles - Family History Known Family History: Positive: Other - neg: anaesthesia reaction - Social History Occupation: Retired Lives: With Family Alcohol Use: None Hx Substance Use: No Substance Use Type: Reports: None Hx Tobacco Use: Yes Smoking Status (MU): Former Smoker Amount Used/How Often: 1 PPD/ 10 YEARS Review of Systems Negative: Fever Positive: Nausea, Other - pos: hematemesis, black stool All Other Systems Reviewed And Are Negative: Yes Physical Exam - Summary Physical Exam Summary: VITAL SIGNS: Reviewed. GENERAL: Patient is an elderly FEMALE who is lying comfortable in the stretcher. Patient is not in any acute respiratory distress. HEAD AND FACE: No signs of trauma. No ecchymosis, hematomas or skull depressions. No sinus tenderness. EYES: PERRLA, EOMI x 2, No injected conjunctiva, no nystagmus. EARS: Hearing grossly intact. Ear canals and tympanic membranes are within normal limits. MOUTH: Oropharynx within normal limits. NECK: Supple, trachea is midline, no adenopathy, no JVD, no carotid bruit, no c- spine tenderness, neck with full ROM. CHEST: Symmetric, no tenderness at palpation. R-sided port. LUNGS: Clear to auscultation bilaterally. No wheezing or crackles. CVS: Regular rate and rhythm, S1 and S2 present, no murmurs or gallops appreciated. ABDOMEN: Soft, non-tender. No signs of distention. No rebound, no guarding, and no masses palpated. Bowel sounds are normal. EXTREMITIES: FROM in all major joints, no edema, no cyanosis or clubbing. NEURO: Alert and oriented x 3. No acute neurological deficits. Speech is normal and follows commands. SKIN: Dry and warm, very pale. Triage Information Reviewed: Yes Vital Signs Reviewed: Yes Diagnostics - Laboratory Result Diagrams: 05/14/18 11:39 05/14/18 16:47 Lab Statement: Any lab studies that have been ordered have been reviewed, and results considered in the medical decision making process. - EKG 1033 Cardiac Rate: NL - 63 bpm EKG Rhythm: Sinus Rhythm Summary of EKG Findings: No ST elevation Re-Evaluation - Re-Evaluation 1 Re-Evaluation Time: 12:07 Change: Improved Comment: Pt has improved, nausea is resolved. GIGU Course/Dx - Course Assessment/Plan: This patient is a 73-year-old female who presents to the emergency department via ambulance after the patient was transferred from [facility] with a diagnosis of an upper GI bleed. Patient reports that last night she developed nausea and vomiting and she started having vomiting blood. She also has been having black stools and is feeling weak. The patient went to [facility] with the aid blood work and it shows that obvious a count of 6.1, hemoglobin 5.9, hematocrit 18.8, platelets of 278. PT is 18.3, INR is 1.5. Glucose is 231, BUN is 48 creatinine 1.2, sodium 140, potassium 5.6 , chloride 110, CO2 20, calcium 8.9, protein is 5.3 albumin 2.6 AST is 12 AST is 23 and alkaline phosphatase is 124. The patient was given 2 units of PRBC. I repeated the blood work in the emergency department and the hemoglobin is 7.2 and the hematocrit is 21 which is improved. Chloride is 113, and Biaxin is 20 BUN is 47 glucose 238 calcium 7.9 AST is 12 albumin is 2.7. At this time I discussed my physical exam and findings with Dr. Chan from GI and he will consult for this patient. I also discussed my physical exam and findings with Dr. Hudson from oncology and he requests admission to the hospitalist. Therefore discussed my physical exam and findings with Dr. Truong from the hospital services was instructed to the patient for admission. At this point the patient is hemodynamically stable and she is no longer nauseous. - Diagnoses Provider Diagnoses: GI bleed - Physician Notifications Discussed Care Of Patient With: Storm Chan - GI Time Discussed With Above Provider: 11:30 Instructed by Provider To: Other - Will consult, and probably do an endoscopy today. - Critical Care Time Critical Care Time: 30-74 min Discharge - Sign-Out/Discharge Documenting (check all that apply): Patient Departure - ADMIT Patient Received Moderate/Deep Sedation with Procedure: No - Discharge Plan Condition: Stable Disposition: ADMITTED TO [facility] - Billing Disposition and Condition Condition: STABLE Disposition: Admitted to [facility] - Attestation Statements Document Initiated by Scribe: Yes Documenting Scribe: Aamir Conway Provider For Whom Consuelo is Documenting (Include Credential): Dr. German Brasher MD Scribe Attestation: I, Aamir Conway, scribed for Dr. German Brasher MD on 05/14/18 at 1830. Scribe Documentation Reviewed: Yes Provider Attestation: The documentation as recorded by the Aamir moreno accurately reflects the service I personally performed and the decisions made by me, Dr. German Brasher MD Status of Scribe Document: Viewed Consult Consult: 1206: Consult with Dr Hudson, oncology Recommends hospitalist admit pt. 1218: Consult with Dr. Truong, hospitalist Will admit pt.
[2018-05-14] MEDS ORDERED: Metoclopramide IV* 5 MG/ML 2 ML VIAL IV ONE (11:25)
[2018-05-14 11:57] LABS: ABS Basophils 0.1 10^3/ul (0-0.2); ABS Eosinophils 0 10^3/ul (0-0.6); ABS Lymphocytes 0.7 10^3/ul (1.0-4.8); ABS Monocytes 0.3 10^3/ul (0-0.8); ABS Neutrophils 4.2 10^3/ul (1.5-7.7); ABS Nucleated RBC 0 10^3/ul; Eosinophil % 0.4 %; Hematocrit 21 % (35-47); Hemoglobin 7.2 g/dl (12.0-16.0); Lymphocyte % 12.7 %; Mean Corpuscular HGB Conc 34 g/dl (31-36); Mean Corpuscular Hemoglobin 31 pg (27-31); Mean Corpuscular Volume 91 fL (80-97); Mean Platelet Volume 8.1 fL (7.4-10.4); Nucleated Red Blood Cells % 0.1; Platelet Count 274 10^3/ul (150-450); Red Blood Count 2.34 10^6/ul (4.00-5.40); Red Cell Distribution Width 16 % (10.5-15); White Blood Count 5.4 10^3/ul (3.5-10.8)
[2018-05-14 12:06] LABS: Activated Partial Thrombo Time 25.4 seconds (26.0-36.3); INR 1.42 (0.77-1.02)
[2018-05-14 12:15] LABS: Albumin 2.7 g/dL (3.2-5.2); Albumin/Globulin Ratio 1.7 (1-3); BUN/Creatinine Ratio 53.4 (8-20); Calcium 7.9 mg/dL (8.6-10.3); EGFR Non-African American 62.8 (>60); Globulin 1.6 g/dL (2-4); Total Bilirubin 0.7 mg/dL (0.2-1.0); Total Protein 4.3 g/dL (6.4-8.9)
--- OUTSIDE RECORDS SUMMARY | 2018-05-14 12:22 | XMS REPORT | Continuity of Care Document ---
:1945 External Reference #:[id number] Author Name Palma Cotto MD Address [address] [place] [address] Care Team Providers Name Role Phone Taurus Hudson MD Care Team Information Electronic Publications Specialist Unavailable Cedric Sandoval MD Primary Care Physician Unavailable Payers Date Identification Numbers Payment Provider Subscriber Policy Number: [id number] [employer] [facility] Emmaleslee Cronin PayID: [id number] [address] [address] [place] [address] Advance Directives Description No Information Available Problems [...] Active failure Family History Date Family Member(s) Observation Comments Father CHF Mother Alzheimer's Disease Social History Type Date Description Comments Sex Unknown Lives With Diet Patient follows no dietary restrictions ADL's/IADL's Independent with all ADL's Tobacco Use Start: Unknown End: Unknown Former Cigarette Smoker 2 years Smoking Status Reviewed: 05/10/18 Former Cigarette Smoker 2 years ETOH Use Denies alcohol use Allergies, Adverse Reactions, Alerts Date Description Reaction Status Severity Comments 01/05/2017 Penicillin yeast infection Active 01/05/2017 Morphine Urticaria Active Medications Medication Date Status Form Strength Qnty SIG Indications Ordering Provider Losartan Active Tablets 25mg 30tab 1 by mouth Yadiel Potassium 9 s every day MD Palma Levothyroxine Active Tablets 137mcg 30tab 1 tab Yadiel Sodium 8 s daily in MD Palma am at least 30 min before breakfast Bisoprolol Active Tablets 5mg 45tab 1/2 by Yadiel, Fumarate 8 s mouth MD Palma every day at bedtime Fish Oil Active Capsules 1000mg by mouth Unknown 0 every day Vitamin D3 Active Capsules 5000Unit 1 by mouth Unknown 0 three times daily Vitamin C Active Tablets 1000mg 1 tsp Unknown 0 three times daily Red Yeast Rice Active Capsules 1140mg 1 po twice Unknown 0 daily Flax Seed Oil Active Capsules 2000mg 1 po daily Unknown 0 Vitamin B-12 Active Tablets 500mcg 2 drops Unknown 0 Sub daily Frankincense Active Oil 4 drops Unknown Uplifting 0 daily Iodine Strong Active Solution 3 drops Unknown (Lugol's) 0 daily in tea Metformin HCL Active Tablets 1000mg 1 by mouth Unknown 0 twice daily Magnesium Active Tablets 250mg 1 tabs by Unknown 0 mouth tid Lysine Active Capsules 500mg 1 capsule Unknown 0 three times weekly. 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, [employer] I42.8 Valsartan 09/20/2017 - Hx Tablets 40mg 60tabs 1 by mouth I42.8 Tyree Claros 09/22/2017 twice daily Rashaun Pena, [facility] I42.8 Bisoprolol 05/10/2017 - Hx Tablets 10mg 45tabs 1/2 tab by Yadiel, Jhonatan 07/15/2017 mouth every MD Palma night at bedtime Bisoprolol 05/04/2017 - Hx Tablets 5mg 90tabs 1/2 by mouth Jhonatan Cotto 05/10/2017 twice daily MD Palma Furosemide 05/02/2017 - Hx Tablets 20mg 180tabs 2 tab by I50.2 Hyacinth, Unknown mouth in the 3 Tyree M., morning Rahsaun, [facility] I42.8 Entresto 05/02/2017 - Hx Tablets 24-26mg 180tabs 1 by mouth I50.23 Plama Cotto, Rashawn twice daily I42.8 Ranexa 03/23/2017 - Hx Tablets ER 500mg 180tabs 1 by mouth Rashawn Cotto 12HR twice a MD Palma day Metformin HCL - Hx Tablets 850mg take one Unknown Unknown tablet by mouth twice a day Valsartan - Hx Tablets 40mg 1 by mouth I50 Unknown 05/02/2017 every day .23 Vitamin D-3 - Hx Capsules 1000Unit 1 by mouth Unknown Unknown every day Calcium + D - Hx Chewtabs 500-1000 3 daily Unknown Unknown -40mg-Un t-mcg Levothyroxine - Hx Tablets 150mcg 1 by mouth Unknown Sodium 02/03/2018 every day Onguard - Hx Unknown Unknown Azithromycin - Hx Tablets 250mg 2 tabs by Unknown Unknown mouth today, then one tab by mouth daily Thyronine - Hx Unknown Unknown Bovine Thyroid - Hx 130mg 1 po every Unknown Unknown other day Furosemide - Hx Tablets 20mg 1 tab by I50 Unknown 05/02/2017 mouth in .23 the morning as needed for edema or weight gain >1 lb Valsartan - Hx Tablets 40mg 1 by mouth Unknown Unknown every day Entresto - Hx Tablets 24-26mg 1 by mouth I50 Unknown Unknown daily .23 I42.8 Milk Of - Hx Suspension 1500mg/15ML 30 milliliters Unknown Magnesia Unknown by mouth three times daily Colostrum - Hx Capsules 500mg 1 po tid daily Unknown Unknown Entresto - Hx Tablets 24-26mg 1 by mouth twice I42. Unknown 09/20/2017 daily 8 I42.8 Furosemide - Hx Tablets 20mg 360tabs 4 tab by I50.23 Mirna Mera Unknown mouth in the [facility], morning with [employer] 2 extra tablet at noon as needed for weight gain >3 lbs or edema I42.8 Valsartan - Unknown Hx Tablets 40mg 1 by mouth every Unknown day Losartan Potassium - Unknown Hx Tablets 50mg 1 by mouth every Unknown day Valsartan - Hx Tablets 40mg 1 by mouth every Unknown 01/30/2018 day Immunizations Description No Information Available Vital Signs Date Vital Result Comment 05/10/2018 10:34am BP Systolic Sitting Left Arm 138 mmHg BP Diastolic Sitting Left Arm 46 mmHg Heart Rate 58 /min Respiratory Rate 16 /min Height 65 inches 5'5" Weight 114.00 lb BMI (Body Mass Index) 19.0 kg/m2 BSA (Body Surface Area) 1.56 m2 [place] body weight in kilograms 57 kg O2 % BldC Oximetry 98 % ra 03/14/2018 10:41am BP Systolic Sitting Left Arm 142 mmHg BP Diastolic Sitting Left Arm 62 mmHg Heart Rate 57 /min Respiratory Rate 15 /min Height 65 inches 5'5" Weight 109.00 lb BMI (Body Mass Index) 18.1 kg/m2 BSA (Body Surface Area) 1.53 m2 [place] body weight in kilograms 57 kg O2 Saturation Level with Exercise 95 % 01/31/2018 10:00am BP Systolic Sitting Right Arm 112 mmHg BP Diastolic Sitting Right Arm 54 mmHg Heart Rate 65 /min Respiratory Rate 36 /min Height 65 inches 5'5" Weight 108.00 lb BMI (Body Mass Index) 18.0 kg/m2 BSA (Body Surface Area) 1.52 m2 [place] body weight in kilograms 57 kg O2 % BldC Oximetry 97 % Ora 01/23/2018 3:17pm BP Systolic Sitting Right Arm 138 mmHg BP Diastolic Sitting Right Arm 64 mmHg Heart Rate 62 /min Respiratory Rate 18 /min Height 65 inches 5'5" Weight 109.00 lb BMI (Body Mass Index) 18.1 kg/m2 BSA (Body Surface Area) 1.53 m2 [place] body weight in kilograms 57 kg O2 % BldC Oximetry 97 % O2 Saturation Level with Exercise 95 % 11/01/2017 2:36pm BP Systolic Sitting Left Arm 118 mmHg BP Diastolic Sitting Left Arm 48 mmHg Heart Rate 67 /min Respiratory Rate 18 /min Height 65 inches 5'5" Weight 105.00 lb BMI (Body Mass Index) 17.5 kg/m2 BSA (Body Surface Area) 1.50 m2 [place] body weight in kilograms 57 kg O2 % BldC Oximetry 97 % 09/20/2017 1:27pm BP Systolic Sitting Right Arm 124 mmHg BP Diastolic Sitting Right Arm 60 mmHg Heart Rate 69 /min Respiratory Rate 14 /min Height 65 inches 5'5" Weight 106.00 lb BMI (Body Mass Index) 17.6 kg/m2 BSA (Body Surface Area) 1.51 m2 [place] body weight in kilograms 57 kg O2 % BldC Oximetry 98 % Room air 08/23/2017 2:22pm BP Systolic Sitting Left Arm 126 mmHg BP Diastolic Sitting Left Arm 66 mmHg Heart Rate 74 /min Respiratory Rate 14 /min Height 65 inches 5'5" Weight 109.00 lb BMI (Body Mass Index) 18.1 kg/m2 BSA (Body Surface Area) 1.53 m2 [place] body weight in kilograms 57 kg O2 % BldC Oximetry 98 % 06/14/2017 1:58pm BP Systolic Sitting Left Arm 130 mmHg BP Diastolic Sitting Left Arm 62 mmHg Heart Rate 72 /min Respiratory Rate 14 /min Height 65 inches 5'5" Weight 107.00 lb BMI (Body Mass Index) 17.8 kg/m2 BSA (Body Surface Area) 1.52 m2 [place] body weight in kilograms 57 kg 05/10/2017 2:51pm BP Systolic Sitting Left Arm 142 mmHg BP Diastolic Sitting Left Arm 66 mmHg Heart Rate 72 /min Respiratory Rate 16 /min Height 65 inches 5'5" Weight 109.00 lb BMI (Body Mass Index) 18.1 kg/m2 BSA (Body Surface Area) 1.53 m2 [place] body weight in kilograms 57 kg 05/02/2017 10:36am BP Systolic Sitting Left Arm 139 mmHg BP Diastolic Sitting Left Arm 70 mmHg Heart Rate 79 /min Respiratory Rate 18 /min Height 65 inches 5'5" Weight 108.00 lb BMI (Body Mass Index) 18.0 kg/m2 BSA (Body Surface Area) 1.52 m2 [place] body weight in kilograms 57 kg 04/13/2017 [...] Test Result H/L Range Note Basic Metabolic 05/08/2018 [facility] Sodium 136 mmol /L N 135-145 Panel [phone] Chloride 108 mmol/L N 101-111 Co2 Carbon Dioxide 19 mmol/L Low 22-32 Calcium 8.8 mg/dL N 8.6-10.3 Potassium 5.1 mmol/L High 3.5-5.0 Anion Gap 9 mmol/L N 2-11 Glucose 279 mg/dL High 70-100 Blood Urea Nitrogen 30 mg/dL High 6-24 Creatinine 1.24 mg/dL High 0.51-0.95 BUN/Creatinine Ratio 24.2 High 8-20 Egfr Non- 42.3 >60 Egfr 51.2 >60 1 Laboratory test 05/08/2018 [facility] Hemoglobin A1c 11.4 % High 4.0-5.6 2 finding [phone] (Glyco HGB) Basic Metabolic 01/31/2018 [facility] Glucose 277 mg/dL High 74-106 3 Panel [address] [place] [address] [phone] BUN 33 mg/dL High 7-18 Creatinine 1.3 mg/dL N 0.6-1.3 Glom Filtration Rate, Estimate 43 mL/min >60 If 52 mL/min >60 4 BUN/Creat 25.3 ratio Sodium 134 mmol/L Low 136-145 Potassium 5.0 mmol/L N 3.5-5.1 Chloride 97 mmol/L Low 98-107 Carbon Dioxide 32 mmol/L N 21-32 Anion Gap 5 mEq/L Low 8-16 Calcium 9.9 mg/dL N 8.5-10.1 Laboratory test 01/31/2018 [facility] Free T4 1.59 ng/dL High 0.76-1.[address] [place] [address] [phone] Free T3 3.95 pg/mL N 2.18-3.98 CBC W/Automated Diff 01/30/2018 [facility] White Blood 5.7 K/uL N 3.1-10.[address] [place] [address] [phone] Red Blood Count 4.34 M/uL N 3.90-5.40 [...] 40.4-72.8 Lymph % 13.7 % Low 20.0-42.0 Parke % 7.9 % N 4.3-13.2 Eo% 1.6 % N 0.0-6.6 Bas% 0.7 % N 0.0-1.1 Neut# 4.33 K/uL N 1.8-7.0 Lymph # 0.78 K/uL Low 1.0-4.0 Parke # 0.45 K/uL N 0.3-0.9 Eos # 0.09 K/uL N 0.0-0.5 Baso # 0.04 K/uL N 0.0-0.1 Basic Metabolic Panel 01/30/2018 [facility] Glucose 315 mg/dL High 74-[address] [place], [place] [id number] [phone] BUN 30 mg/dL High 7-18 Creatinine 1.3 mg/dL N 0.6-1.3 Glom Filtration Rate, Estimate 43 mL/min >60 If 52 mL/min >60 6 BUN/Creat 23.0 ratio Sodium 133 mmol/L Low 136-145 Potassium 5.4 mmol/L High 3.5-5.1 Chloride 97 mmol/L Low 98-107 Carbon Dioxide 31 mmol/L N 21-32 Anion Gap 5 mEq/L Low 8-16 Calcium 9.9 mg/dL N 8.5-10.1 Laboratory test 01/30/2018 [facility] Thyroid Stim < 0.01 Low 0.30-4.20 finding [address] [facility] Hormone uIU/[place] [address] [phone] Basic Metabolic 10/19/2017 [facility] Glucose 260 mg/dL High 74-106 Panel [address] [place] [address] [phone] BUN 34 mg/dL High 7-18 Creatinine 1.3 mg/dL N 0.6-1.3 Glom Filtration Rate, Estimate 43 mL/min >60 If 52 mL/min >60 7 BUN/Creat 26.1 ratio Sodium 139 mmol/L N 136-145 Potassium 4.7 mmol/L N 3.5-5.1 Chloride 99 mmol/L N 98-107 Carbon Dioxide 30 mmol/L N 21-32 Anion Gap 10 mEq/L N 8-16 Calcium 8.5 mg/dL N 8.5-10.1 Laboratory test 10/19/2017 [facility] Magnesium 2.2 mg/dL N 1.8-2.4 finding [address] [place] [address] [phone] Basic Metabolic 08/25/2017 [facility] Glucose 170 mg/dL High 74-106 Panel [address] [place] [address] [phone] BUN 30 mg/dL High 7-18 Creatinine 1.2 mg/dL N 0.6-1.3 Glom Filtration Rate, Estimate 47 mL/min >60 If 57 mL/min >60 8 BUN/Creat 25.0 ratio Sodium 137 mmol/L N 136-145 Potassium 5.1 mmol/L N 3.5-5.1 Chloride 101 mmol/L N 98-107 Carbon Dioxide 27 mmol/L N 21-32 Anion Gap 9 mEq/L N 8-16 Calcium 9.0 mg/dL N 8.5-10.1 Laboratory test 08/25/2017 [facility] Magnesium 2.5 mg/dL High 1.8-2.4 finding [address] [place] [address] [phone] Basic Metabolic 06/27/2017 [facility] Glucose 168 mg/dL High 74-106 9 Panel [address] [place] [address] [phone] BUN 20 mg/dL High 7-18 Creatinine 1.0 mg/dL N 0.6-1.3 Glom Filtration Rate, Estimate 58 mL/min >60 If >60 mL/min >60 10 BUN/Creat 20.0 ratio Sodium 136 mmol/L N 136-145 Potassium 5.3 mmol/L High 3.5-5.1 Chloride 98 mmol/L N 98-107 Carbon Dioxide 29 mmol/L N 21-32 Anion Gap 9 mEq/L N 8-16 Calcium 9.7 mg/dL N 8.5-10.1 Laboratory test 06/27/2017 [facility] Magnesium 2.2 mg/dL N 1.8-2.4 finding [address] [place] [address] [phone] Basic Metabolic 05/02/2017 [facility] Glucose 130 mg/dL High 74-106 11 Panel [address] [place] [address] [phone] BUN 17 mg/dL N 7-18 Creatinine 1.0 mg/dL N 0.6-1.3 Glom Filtration Rate, Estimate 58 mL/min >60 If >60 mL/min >60 12 BUN/Creat 17.0 ratio Sodium 138 mmol/L N 136-145 Potassium 4.9 mmol/L N 3.5-5.1 Chloride 104 mmol/L N 98-107 Carbon Dioxide 27 mmol/L N 21-32 Anion Gap 7 mEq/L Low 8-16 Calcium 9.5 mg/dL N 8.5-10.1 Laboratory test 05/02/2017 [facility] Magnesium 2.2 mg/dL N 1.8-2.[address] [place] [address] [phone] CBS W/Automated 03/16/2017 [facility] White Blood 5.9 K/uL N 3.1-10.7 [address] [place] [address] [phone] Red Blood Count 4.10 M/uL N 3.90-5.40 [...] 40.4-72.8 Lymph % 14.5 % Low 20.0-42.0 Parke % 7.7 % N 4.3-13.2 Eo% 1.2 % N 0.0-6.6 Bas% 0.5 % N 0.0-1.1 Neut# 4.45 K/uL N 1.8-7.0 Lymph # 0.85 K/uL Low 1.0-4.0 Parke # 0.45 K/uL N 0.3-0.9 Eos # 0.07 K/uL N 0.0-0.5 Baso # 0.03 K/uL N 0.0-0.1 Comprehensive Metabolic 03/16/2017 [facility] Glucose 121 mg/dL High 74-106 Panel [address] [place] [address] [phone] BUN 35 mg/dL High 7-18 Creatinine 0.9 mg/dL N 0.6-1.3 Glom Filtration Rate, Estimate >60 mL/min >60 If >60 mL/min >60 14 BUN/Creat 38.8 ratio Sodium 138 mmol/L N [...] 12-78 Alkaline Phosphatase 167 U/L High 45-117 Laboratory test finding 03/16/2017 [facility] Magnesium 2.2 mg/dL N 1.8-2.4 [address] [place] [address] [phone] Thyroid Stim Hormone < 0.01 uIU/mL Low 0.30-4.20 NT-proBNP 16279.0 pg/mL High <125 Ua RFX Micro & Culture 03/16/2017 [facility] Urine Color YELLOW Yellow II [address] [place] [address] [phone] Urine Clarity CLEAR Clear Urine Glucose - Dipstick NEGATIVE mg/dL Negative Urine Bilirubin - Dipstick NEGATIVE Negative Urine Ketone NEGATIVE mg/dL Negative Urine Specific [place] <=1.005 Low 1.010-1.030 Urine Blood NEGATIVE Negative Urine PH 5.5 Low 6.5-7.5 Urine Protein - Dipstick NEGATIVE mg/dL Negative Urine Urobilinogen - Dipstick 0.2 E.U./dL N 0.2-1.0 Urine Nitrite - Dipstick NEGATIVE Negative Urine Leuk Esterase NEGATIVE Negative Source: URINE, CLEAN CAT <SEE NOTE> 15 Comprehensive Metabolic 02/18/2017 [facility] Albumin SerPl 4.1 g/dL 3.5-5.2 Hill BCG-mCnc [...] pred.black SerPl MDRD-ArVRat 54 mL/min/1.73m2 Low >60 CBC + Diff, Plat Count 02/18/2017 [facility] WBC Num Bld Auto 6.0 10*3/ uL [...] Basophils Num Bld Auto 0.00 10*3/uL 0-0.2 1 Because ethnic data is not always readily available, this report includes an eGFR for both -Americans and non- Americans. The National Kidney Disease Education Program (NKDEP) does not endorse the use of the MDRD equation for patients that are not between the ages of 18 and 70, are , have extremes of body size, muscle mass, or nutritional status, or are non- or non-. According to the National Kidney Foundation, irrespective of diagnosis, the stage of the disease is based on the level of kidney function: Stage Description GFR(mL/min/1.73 m(2)) 1 Kidney damage with normal or decreased GFR 90 2 Kidney damage with mild decrease in GFR 60-89 3 Moderate decrease in GFR 30-59 4 Severe decrease in GFR 15-29 5 Kidney failure <15 (or dialysis) 2 Therapeutic target for the treatment of diabetes mellitus patients is <7% HBA1C, and in selective patients <6.0%. Please refer to [place] [employer] Association diabetic care guidelines for further information. 3 I42.8 4 Note: Persistent reduction for 3 months or more in an eGFR <60 mL/min/1.73 m2 defines CKD. Patients with eGFR values >/=60 mL/min/1.73 m2 may also have CKD if evidence of persistent proteinuria is present. The original MDRD equation for estimated GFR is not valid for patients less than 18 years of age. Additional information may be found at www.[email or web address]. 5 I50.22 6 Note: Persistent reduction for 3 months or more in an eGFR <60 mL/min/1.73 m2 defines CKD. Patients with eGFR values >/=60 mL/min/1.73 m2 may also have CKD if evidence of persistent proteinuria is present. The original MDRD equation for estimated GFR is not valid for patients less than 18 years of age. Additional information may be found at www.[email or web address]. 7 Note: Persistent reduction for 3 months or more in an eGFR <60 mL/min/1.73 m2 defines CKD. Patients with eGFR values >/=60 mL/min/1.73 m2 may also have CKD if evidence of persistent proteinuria is present. The original MDRD equation for estimated GFR is not valid for patients less than 18 years of age. Additional information may be found at www.[email or web address]. 8 Note: Persistent reduction for 3 months or more in an eGFR <60 mL/min/1.73 m2 defines CKD. Patients with eGFR values >/=60 mL/min/1.73 m2 may also have CKD if evidence of persistent proteinuria is present. The original MDRD equation for estimated GFR is not valid for patients less than 18 years of age. Additional information may be found at www.[email or web address]. 9 I42.8 10 Note: Persistent reduction for 3 months or more in an eGFR <60 mL/min/1.73 m2 defines CKD. Patients with eGFR values >/=60 mL/min/1.73 m2 may also have CKD if evidence of persistent proteinuria is present. The original MDRD equation for estimated GFR is not valid for patients less than 18 years of age. Additional information may be found at www.[email or web address]. 11 I50.23 12 Note: Persistent reduction for 3 months or more in an eGFR <60 mL/min/1.73 m2 defines CKD. Patients with eGFR values >/=60 mL/min/1.73 m2 may also have CKD if evidence of persistent proteinuria is present. The original MDRD equation for estimated GFR is not valid for patients less than 18 years of age. Additional information may be found at [email or web address]. 13 I50.42 14 Note: Persistent reduction for 3 months or more in an eGFR <60 mL/min/1.73 m2 defines CKD. Patients with eGFR values >/=60 mL/min/1.73 m2 may also have CKD if evidence of persistent proteinuria is present. The original MDRD equation for estimated GFR is not valid for patients less than 18 years of age. Additional information may be found at [email or web address]. 15 URINE, CLEAN CATCH Procedures Date Code Description Status 03/22/2018 79056 Echocardiogram Complete Completed 01/23/2018 99869 EKG-Tracing And Report Completed 09/29/2017 63611 Echocardiogram Complete Completed 05/02/2017 90684 EKG-Tracing And Report Completed 03/22/2017 55216 Echocardiogram Complete Completed 01/13/2017 93294 Echocardiogram Complete Completed 01/13/2017 10734 Event Monitor Inter/Review Only Completed 01/05/2017 29662 EKG-Tracing And Report Completed 07/30/2010 97275 Anesthesia, Neck Organ Surgery Not Otherwise Spec 1Yr Or Completed Older 07/27/2010 08143 EKG Interpretation And Report Only Completed 02/03/2010 07482 Holter Monitor 24HR Inter/Report Completed 11/25/2009 18369 EKG Interpretation And Report Only Completed Encounters Type Date Location Provider Dx Diagnosis Office Visit 05/10/2018 Cardiology Office Palma Cotto MD I42.8 Other cardiomyopathies 10:30a R06.02 Shortness of breath I48.0 Paroxysmal atrial fibrillation Office Visit 03/14/2018 Cardiology Palma Cotto I42.8 Other cardiomyopathies 10:30a Office I48.0 Paroxysmal atrial fibrillation R06.02 Shortness of [...] fibrillation Office Visit 09/20/2017 1:30p Cardiology Office [place], I50.22 Chronic systolic Marlyss B., (congestive) heart PA failure I42.8 Other cardiomyopathies I48.0 Paroxysmal atrial fibrillation Office Visit 08/23/2017 2:20p Cardiology Office [place], I50.22 Chronic systolic Marlyss B., (congestive) heart PA failure I48.0 Paroxysmal atrial fibrillation I42.8 Other cardiomyopathies Office Visit 06/14/2017 Cardiology [place] I42.8 Other cardiomyopathies 1:40p Office Marlyss B., PA I48.0 Paroxysmal atrial fibrillation I50.22 Chronic systolic (congestive) heart failure Office Visit 05/10/2017 2:30p Cardiology Office CottoPorfirioa, I50.23 Acute on chronic MD systolic (congestive) heart failure I42.8 Other cardiomyopathies I48.0 Paroxysmal atrial fibrillation Office Visit 05/02/2017 10:20a Cardiology Office [place], I50.23 Acute on chronic Marlyss B., systolic [...] Essential (primary) hypertension Plan of Treatment Future Appointment(s):11/15/2018 10:15 am - Palma Cotto MD at Cardiology [id number]/10/2018 - Palma Cotto MDI42.8 Other cardiomyopathiesComments:Complete recovery of LV function. Off diuretics. Continue low dose BB / ARBR06.02 Shortness of breathComments:Much improved. Now recovering from the flu. Will have CT/PET soon for metastatic disease re [id number] Paroxysmal atrial fibrillationComments:No recurrences. Currently off all therapyAllFollow up:6 months. Sooner appt if symptoms arise.
--- OUTSIDE RECORDS SUMMARY | 2018-05-14 12:22 | XMS REPORT | Continuity of Care Document ---
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 Family History Date Family Member(s) Observation Comments General Breast Cancer General Ovarian Cancer General Bladder Cancer General Skin Cancer General Lung Cancer Father Heart Failure Mother Alzheimer's Disease Siblings FH Grand parents Cancer and CVA Mother, Aunts 2 sisters Diabetic 1 Brother Mesothelioma 1 Brother Lung Cancer 1 Brother skin Cancer 1 Sister Breast Cancer Social History Type Date Description Comments Sex Unknown Marital Status Lives With Spouse Occupation Retired ETOH Use Denies alcohol use Tobacco Use Start: Unknown End: Unknown Patient is a former smoker Smoking Status Reviewed: 05/04/18 Patient is a former smoker Allergies, Adverse Reactions, Alerts Date Description Reaction Status Severity Comments 11/21/2013 Penicillin yeast infection Active 11/21/2013 Morphine Urticaria Active 03/10/2018 Morphine And Related Active Medications Medication Date Status Form Strength Qnty SIG Indications Ordering Provider Metformin HCL 05/18/ Active Tablets 1000mg 180tab 1 tab E11.9 Cedric 2016 s twice a Hazel day MD Danielle marie Carr 08/28/ Active Capsules Shellie Clark M.D. Liothyronine 06/27/ Active Tablets 5mcg E03.9 Unknown Sodium 2014 Diovan 10/06/ Active Tablets 40mg 90tabs 1 by Cedric 2012 mouth Hazel every day MD frank Natural Herbs / Active Unknown 0000 Flaxseed Oil / Active Capsules 1000mg 1 by Unknown 0000 mouth every day Vitamin B-12 / Active Lozenges 1 by Unknown 0000 mouth every day [place] 3 / Active Capsules 1000mg 1 by Unknown 0000 mouth qd. Red Yeast Rice / Active Capsules 600mg 1 by Unknown 0000 mouth twice a day Magnesium / Active Tablets 250mg 1 by Unknown 0000 mouth every day MSM / Active Tablets 1500mg Unknown 0000 Strontium / Active Unknown Chloride 0000 Zinc / Active Tablets 25mg 1 by Unknown 0000 mouth every day Synthroid / Active Tablets 150mcg 1 po qd E03.9 Brain, 0000 MD Chip Albuterol / Active Nebulizer (2.5mg/3ML Unknown Sulfate 0000 ) 0.083% Bisoprolol / Active Tablets 5mg Take 1/2 Unknown Fumarate 0000 Tablet By Mouth Twice A Day Furosemide / Active Tablets 20mg Hyacinth, 0000 MD Tyree Oxygen / Active 2 L/min Yadiel 0000 via NC at MD [place] hs and as needed during the day for SOB Levofloxacin / Active Tablets 500mg Take 1 Unknown 0000 Tablet By Mouth Every Day Azithromycin 05/16/ Hx Tablets 250mg 6tabs 2 now and J01.00 Cedric 2017 - daily x Hazel 02/01/ 4 days MD frank 2017 wait 1 week and repeat another course Azithromycin 03/02/ Hx Tablets 250mg 6tabs 2 now and J06.9 Cedric 2016 daily x Hazel days MD frank 2017 Ultracet 08/28/ Hx Tablets 37.5-325mg 30tabs 1 - 2 by 215.2 Shellie 2014 - mouth Clark, 05/04/ q4-6hr as Rashaun 2019 needed pain Atorvastatin 04/15/ Hx Tablets 10mg 45tabs 1/2 by 272.4 Cedric Calcium 2014 - mouth Hazel 07/15/ every day MD frank 2014 Aspirin Ec Low 03/23/ Hx Tablets DR 81mg 100tab 1 po qd 784.0 Cedric Dose 2013 - s Hazel 06/27/ MD frank 2013 Cipro 05/26/ Hx Tablets 500mg 20tabs 1 po bid 788.41 Cedric 2012 - Hazel 07/05/ MD frank 2012 Albuterol 01/25/ Hx Nebulizer (2.5mg/3ML 90unit via neb Jack, Sulfate 2011 - ) 0.083% s qid & prn Dorinda 04/04/ MEGHANN Guillaume 2012 Glucotrol XL 02/24/ Hx Tablets ER 2.5mg 90tabs take 1 E11.9 Cedric 2010 - 24HR tablet Hazel 07/09/ daily MD frank 2015 Synthroid 02/16/ Hx Tablets 137mcg 1 tab by Jack 2010 - mouth Dorinda 03/23/ every day MEGHANN Guillaume 2011 Coreg 02/16/ Hx Tablets 3.125mg 180tab 1 tab by 401.9 Jack 2010 - s mouth Dorinda 10/06/ twice a MEGHANN Guillaume 2012 day Glipizide ER / Hx Tablets ER 2.5mg 270tab 1 by Unknown 0000 - 24HR s mouth 05/18/ every day 2016 Metformin HCL / Hx Tablets 850mg 60tabs 1 by Unknown 0000 - mouth 05/18/ twice a 2016 day Pea Thyroid / Hx Unknown - 2018 Aspirin / Hx Tablets 325mg 2 by Unknown 0000 - mouth 09/25/ every day 2014 Ranexa / Hx Tablets ER 500mg Yadiel 0000 - 12HR MD [place] 2018 Entresto / Hx Tablets 24-26mg 1 two Unknown 0000 - times per 2018 Doxycycline / Hx Capsules 100mg Unknown Hyclate - 11/22/ 2017 Immunizations CPT Code Status Date Vaccine Lot # [id number] Given 09/28/2011 Tdap - Tetanus/Diptheria/Acellular Pertussis Vital Signs Date Vital Result Comment 05/04/2018 10:12am Weight 103.00 lb Heart Rate 58 /min BP Systolic 122 mmHg BP Diastolic 48 mmHg Respiratory Rate 20 /min O2 % BldC Oximetry 98 % room air 02/01/2018 3:03pm Height 63.25 inches Weight 106.00 lb Heart Rate 66 /min BP Systolic 142 mmHg BP Diastolic 54 mmHg Respiratory Rate 20 /min BMI (Body Mass Index) 18.6 kg/m2 05/09/2017 9:40am Weight 108.00 lb Heart Rate 64 /min BP Systolic 118 mmHg BP Diastolic 52 mmHg 03/02/2017 10:16am Weight 106.00 lb BP Systolic 126 mmHg BP Diastolic 62 mmHg 01/21/2017 10:33am Height 63.75 inches Weight 107.00 lb Heart Rate 76 /min BP Systolic 140 mmHg BP Diastolic 66 mmHg Respiratory Rate 16 /min Body Temperature 98.5 F BMI (Body Mass Index) 18.5 kg/m2 12/22/2016 10:44am Weight 111.00 lb BP Systolic 142 mmHg BP Diastolic 52 mmHg 07/27/2016 10:03am Weight 112.00 lb BP Systolic 138 mmHg BP Diastolic 60 mmHg 05/18/2016 8:48am Weight 110.00 lb BP Systolic 120 mmHg BP Diastolic 60 mmHg 01/21/2016 10:17am Height 65 inches Weight 111.50 lb Heart Rate 72 /min BP Systolic 132 mmHg BP Diastolic 62 mmHg Respiratory Rate 16 /min Body Temperature 98.0 F BMI (Body Mass Index) 18.6 kg/m2 10/21/2015 8:57am Weight 111.00 lb BP Systolic 148 mmHg BP Diastolic 78 mmHg 08/07/2015 3:08pm Weight 107.00 lb BP Systolic 138 mmHg BP Diastolic 70 mmHg 07/10/2015 8:14am Weight 108.00 lb BP Systolic 120 mmHg BP Diastolic 70 mmHg 01/17/2015 10:00am Weight 113.00 lb BP Systolic 120 mmHg BP Diastolic 70 mmHg 01/17/2015 10:02am Body Temperature 98.4 F 10/18/2014 11:12am Height 65.25 inches Weight 115.00 lb Heart Rate 68 /min BP Systolic 122 mmHg BP Diastolic 70 mmHg Respiratory Rate 16 /min Body Temperature 96.9 F BMI (Body Mass Index) 19.0 kg/m2 09/25/2014 8:03am Heart Rate 90 /min BP Systolic Sitting 168 mmHg BP Diastolic Sitting 100 mmHg 08/28/2014 3:07pm Height 65 inches 5'5" Weight 115.00 lb Heart Rate 76 /min BP Systolic Sitting 120 mmHg BP Diastolic Sitting 78 mmHg BMI (Body Mass Index) 19.1 kg/m2 04/15/2014 7:59am Weight 119.00 lb BP Systolic 120 mmHg BP Diastolic 70 mmHg 02/07/2014 8:13am Weight 122.00 lb BP Systolic 136 mmHg BP Diastolic 60 mmHg 12/26/2013 11:43am Height 64 inches 5'4" Weight 122.00 lb Heart Rate 78 /min BP Systolic Sitting 122 mmHg BP Diastolic Sitting 86 mmHg BMI (Body Mass Index) 20.9 kg/m2 11/21/2013 2:06pm Height 64 inches 5'4" Weight 126.00 lb Heart Rate 70 /min BP Systolic Sitting 126 mmHg BP Diastolic Sitting 70 mmHg Pain Level 3 L arm BMI (Body Mass Index) 21.6 kg/m2 10/08/2013 10:03am Height 63.75 inches Weight 126.50 lb Heart Rate 72 /min BP Systolic 120 mmHg BP Diastolic 60 mmHg Respiratory Rate 16 /min Body Temperature 97.7 F BMI (Body Mass Index) 21.9 kg/m2 06/27/2013 10:00am Weight 131.00 lb BP Systolic 120 mmHg BP Diastolic 60 mmHg 03/23/2013 11:44am Weight 134.00 lb BP Systolic 130 mmHg BP Diastolic 80 mmHg 01/08/2013 2:34pm Weight 134.00 lb BP Systolic 140 mmHg BP Diastolic 70 mmHg 11/13/2012 3:20pm Weight 132.50 lb BP Systolic 128 mmHg BP Diastolic 70 mmHg 10/06/2012 9:05am Height 65 inches Weight 137.00 lb Heart Rate 72 /min BP Systolic 136 mmHg BP Diastolic 86 mmHg Respiratory Rate 16 /min Body Temperature 96.8 F BMI (Body Mass Index) 22.8 kg/m2 07/05/2012 1:01pm Weight 138.50 lb Heart Rate 76 /min BP Systolic 144 mmHg BP Diastolic 80 mmHg 05/26/2012 9:08am Weight 138.00 lb BP Systolic 140 mmHg BP Diastolic 80 mmHg Body Temperature 97.7 F 04/04/2012 8:32am Weight 143.00 lb BP Systolic 120 mmHg BP Diastolic 80 mmHg 01/06/2012 8:33am Weight 142.00 lb BP Systolic 154 mmHg BP Diastolic 80 mmHg 10/13/2011 3:04pm Weight 152.00 lb BP Systolic 142 mmHg BP Diastolic 80 mmHg 09/28/2011 8:41am Height 63.25 inches Weight 152.00 lb Heart Rate 88 /min BP Systolic 140 mmHg BP Diastolic 82 mmHg Respiratory Rate 16 /min Body Temperature 96.8 F BMI (Body Mass Index) 26.7 kg/m2 06/29/2011 9:51am Weight 152.00 lb BP Systolic 140 mmHg BP Diastolic 78 mmHg 02/24/2011 9:06am Weight 152.00 lb BP Systolic 150 mmHg BP Diastolic 88 mmHg Results Test Date Facility Test Result H/L Range Note CBC Auto Diff 05/01/2018 [facility] White Blood 5.2 10^3/uL N 3.5-10.[address] [place] [address] [phone] Red Blood Count 3.52 10^6/uL Low 4.00-5.40 Hemoglobin 10.5 g/dL Low 12.0-16.0 Hematocrit 32 % Low 35-47 Mean Corpuscular Volume 90 fL N 80-97 Mean Corpuscular Hemoglobin 30 pg N 27-31 Mean Corpuscular HGB Conc 33 g/dL N 31-36 Red Cell Distribution Width 16 % High 10.5-15 Platelet Count 248 10^3/uL N 150-450 Mean Platelet Volume 8.8 fL N 7.4-10.4 Abs Neutrophils 4.1 10^3/uL N 1.5-7.7 Abs Lymphocytes 0.6 10^3/uL Low 1.0-4.8 Abs Monocytes 0.4 10^3/uL N 0-0.8 Abs Eosinophils 0.1 10^3/uL N 0-0.6 Abs Basophils 0.1 10^3/uL N 0-0.2 Abs Nucleated RBC 0 10^3/uL Granulocyte % 78.8 % Lymphocyte % 10.6 % Monocyte % 7.0 % Eosinophil % 2.6 % Basophil % 1.0 % Nucleated Red Blood Cells % 0.1 Comp Metabolic Panel 05/01/2018 [facility] Sodium 132 mmol/L Low 135-[address] [place] [address] [phone] Potassium 4.6 mmol/L N 3.5-5.0 Chloride 98 mmol/L Low 101-111 Co2 Carbon Dioxide 23 mmol/L N 22-32 Anion Gap 11 mmol/L N 2-11 Calcium 9.7 mg/dL N 8.6-10.3 Albumin 4.1 g/dL N 3.2-5.2 Total Bilirubin 0.30 mg/dL N 0.2-1.0 Glucose 420 mg/dL High 70-100 Blood Urea Nitrogen 46 mg/dL High 6-24 Creatinine 1.33 mg/dL High 0.51-0.95 BUN/Creatinine Ratio 34.6 High 8-20 Total Protein 6.8 g/dL N 6.4-8.9 Globulin 2.7 g/dL N 2-4 Albumin/Globulin Ratio 1.5 N 1-3 Alkaline Phosphatase 121 U/L High 34-104 Alt 13 U/L N 7-52 Ast 11 U/L Low 13-39 Egfr Non- 39.1 >60 Egfr 47.3 >60 1 Laboratory test 05/01/2018 [facility] TSH (Thyroid 0.04 Low 0.34-5.[address] Stim Horm) mcIU/[place] [address] [phone] Basic Metabolic 04/17/2018 [facility] Sodium 136 mmol/L N 135- [address] [place] [address] [phone] Chloride 100 mmol/L Low 101-111 Co2 Carbon Dioxide 25 mmol/L N 22-32 Calcium 10.3 mg/dL N 8.6-10.3 Potassium 5.1 mmol/L High 3.5-5.0 Anion Gap 11 mmol/L N 2-11 Glucose 136 mg/dL High 70-100 Blood Urea Nitrogen 29 mg/dL High 6-24 Creatinine 1.23 mg/dL High 0.51-0.95 BUN/Creatinine Ratio 23.6 High 8-20 Egfr Non- 42.8 >60 Egfr 51.8 >60 2 Comp Metabolic Panel 04/10/2018 [facility] Sodium 138 mmol/L N 135-[address] [place] [address] [phone] Potassium 3.6 mmol/L N 3.5-5.0 Chloride 105 mmol/L N 101-111 Co2 Carbon Dioxide 20 mmol/L Low 22-32 Anion Gap 13 mmol/L High 2-11 Calcium 9.0 mg/dL N 8.6-10.3 Albumin 4.2 g/dL N 3.2-5.2 Total Bilirubin 0.40 mg/dL N 0.2-1.0 Glucose 242 mg/dL High 70-100 Blood Urea Nitrogen 21 mg/dL N 6-24 Creatinine 1.34 mg/dL High 0.51-0.95 BUN/Creatinine Ratio 15.7 N 8-20 Total Protein 6.4 g/dL N 6.4-8.9 Globulin 2.2 g/dL N 2-4 Albumin/Globulin Ratio 1.9 N 1-3 Alkaline Phosphatase 134 U/L High 34-104 Alt 42 U/L N 7-52 Ast 15 U/L N 13-39 Egfr Non- 38.8 >60 Egfr 46.9 >60 3 Comp Metabolic Panel 04/04/2018 [facility] Sodium 135 mmol/L N 135-[address] [place] [address] [phone] Potassium 4.5 mmol/L N 3.5-5.0 Chloride 101 mmol/L N 101-111 Co2 Carbon Dioxide 27 mmol/L N 22-32 Anion Gap 7 mmol/L N 2-11 Glucose 285 mg/dL High 70-100 Blood Urea Nitrogen 38 mg/dL High 6-24 Creatinine 1.64 mg/dL High 0.51-0.95 BUN/Creatinine Ratio 23.2 High 8-20 Calcium 12.9 mg/dL High 8.6-10.3 Total Protein 6.9 g/dL N 6.4-8.9 Albumin 4.2 g/dL N 3.2-5.2 Globulin 2.7 g/dL N 2-4 Albumin/Globulin Ratio 1.6 N 1-3 Total Bilirubin 0.30 mg/dL N 0.2-1.0 Alkaline Phosphatase 99 U/L N 34-104 Alt 10 U/L N 7-52 Ast 12 U/L Low 13-39 Egfr Non- 30.7 >60 Egfr 37.2 >60 4 Laboratory test 04/04/2018 [facility] Magnesium 2.5 mg/dL N 1.9-2.[address] [place] [address] [phone] CBC Auto Diff 04/04/2018 [facility] White Blood 5.4 N 3.5- 10.[address] Count 10^3/[place] [address] [phone] Red Blood Count 3.94 10^6/uL Low 4.00-5.40 Hemoglobin 11.6 g/dL Low 12.0-16.0 Hematocrit 35 % N 35-47 Mean Corpuscular Volume 89 fL N 80-97 Mean Corpuscular Hemoglobin 30 pg N 27-31 Mean Corpuscular HGB Conc 33 g/dL N 31-36 Red Cell Distribution Width 15 % N 10.5-15 Platelet Count 304 10^3/uL N 150-450 Mean Platelet Volume 7.6 fL N 7.4-10.4 Abs Neutrophils 4.0 10^3/uL N 1.5-7.7 Abs Lymphocytes 0.6 10^3/uL Low 1.0-4.8 Abs Monocytes 0.6 10^3/uL N 0-0.8 Abs Eosinophils 0.1 10^3/uL N 0-0.6 Abs Basophils 0.1 10^3/uL N 0-0.2 Abs Nucleated RBC 0 10^3/uL Granulocyte % 74.6 % Lymphocyte % 10.9 % Monocyte % 10.7 % Eosinophil % 2.1 % Basophil % 1.7 % Nucleated Red Blood Cells % 0.1 Pthi 04/04/2018 [facility] Calcium (PTH Intact) 12.6 mg/dL High 8.6-10.[address] [place] [address] [phone] PTH Intact < 1.0 pmol/L Low 1.3-9.3 Laboratory test finding 02/16/2018 N2N/CCD Import Free T3 2.34 pg/mL 2.18-3.98 5 Free T4 1.37 ng/dL 0.76-1.46 Glycohemoglobin (A1c) 11.4 % High 4.2-6.3 6 Reflex add FT3? Y Reflex add FT4? Y Thyroid Stim Hormone < 0.01 uIU/mL Low 0.3-4.2 eAG 280 mg/dL CBC 02/16/2018 N2N/CCD Import Hematocrit 36.3 % 36-46.1 Hemoglobin 12.0 gm/dL 11.6-15.8 Mean Cell Volume 91.0 fl 80.9-99 Mean Corpuscular HGB 30.1 pg 25.9-32.7 Mean Corpuscular HGB Conc 33.1 g/dL 30.8-34.3 Mean Platelet Volume 9.6 fL 8.9-12.4 Platelet Count 334 K/uL 155-360 Red Blood Count 3.99 M/uL 3.9-5.4 Red Cell Distri Width %CV 14.6 % High 11.7-14.4 White Blood Count 5.5 K/uL 3.1-10.7 LDL Cholesterol Profile 02/16/2018 N2N/CCD Import Cholesterol 126 mg/dL 7 HDL Cholesterol 24 mg/dL Low 8 LDL-Cholesterol 44 mg/dL 9 Reflex add FT3? Y Reflex add FT4? Y Triglycerides 288 mg/dL High 10 Comprehensive Metabolic Panel 02/16/2018 N2N/CCD Import Alb/Glob 0.9 ratio Albumin 3.6 g/dL 3.4-5 Alkaline Phosphatase 183 U/L High 45-117 Anion Gap 8 mEq/L 8-16 BUN 28 mg/dL High 7-18 BUN/Creat 21.5 ratio Bilirubin,Total 0.2 mg/dL 0.2-1 Calcium 9.0 mg/dL 8.5-10.1 Carbon Dioxide 28 mmol/L 21-32 Chloride 99 mmol/L 98-107 Creatinine 1.3 mg/dL 0.6-1.3 Globulin 4.1 g/dL 1.9-4.3 Glom Filtration Rate, Estimate 43 mL/min Glucose 216 mg/dL High 74-106 If 52 mL/min 11 Potassium 4.2 mmol/L 3.5-5.1 SGPT/Alt 29 U/L 12-78 Sgot/Ast 20 U/L 15-37 Sodium 135 mmol/L Low 136-145 Total Protein 7.7 g/dL 6.4-8.2 Laboratory test finding 12/08/2017 N2N/CCD Import Egfr 85.1 1 12 Egfr Non- 70.3 1 Poc BUN/Creatinine Ratio 37.5 1 High 8-20 Poc Blood Urea Nitrogen 30 mg/dL High 8-26 Poc Creatinine 0.8 mg/dL 0.6-1.3 13 Laboratory test 02/02/2017 N2N/CCD Import Free T3 4.45 pg/mL High 2.18- 3.98 14 finding Free T4 1.91 ng/dL High 0.76-1.46 Thyroid Stim Hormone < 0.01 uIU/mL Low 0.3-4.2 Comprehensive Metabolic Panel 01/19/2017 N2N/CCD Import Alb/Glob 1.0 ratio 15 Albumin 3.5 g/dL 3.4-5 Alkaline Phosphatase 220 U/L High 45-117 Anion Gap 6 mEq/L Low 8-16 BUN 18 mg/dL 7-18 BUN/Creat 16.3 ratio Bilirubin,Total 0.4 mg/dL 0.2-1 Calcium 10.1 mg/dL 8.5-10.1 Carbon Dioxide 26 mmol/L 21-32 Chloride 106 mmol/L 98-107 Creatinine 1.1 mg/dL 0.6-1.3 Globulin 3.6 g/dL 1.9-4.3 Glom Filtration Rate, Estimate 52 mL/min Glucose 134 mg/dL High 74-106 If >60 mL/min 16 Potassium 4.8 mmol/L 3.5-5.1 SGPT/Alt 39 U/L 12-78 Sgot/Ast 24 U/L 15-37 Sodium 138 mmol/L 136-145 Total Protein 7.1 g/dL 6.4-8.2 CBC 01/19/2017 N2N/[employer] Import Hematocrit 35.9 % Low 36-46.1 Hemoglobin 11.3 gm/dL Low 11.6-15.8 Mean Cell Volume 88.6 fl 80.9-99 Mean Corpuscular HGB 27.9 pg 25.9-32.7 Mean Corpuscular HGB Conc 31.5 g/dL 30.8-34.3 Mean Platelet Volume 10.0 fL 8.9-12.4 Platelet Count 435 K/uL High 150-400 Red Blood Count 4.05 M/uL 3.9-5.4 Red Cell Distri Width %CV 16.8 % High 11.7-14.4 White Blood Count 6.0 K/uL 3.1-10.7 Laboratory test 01/19/2017 N2N/CCD Import Glycohemoglobin (A1c) 7.5 % High 4.2-6.3 17 finding eAG 169 mg/dL Arterial Blood Gas 12/19/2016 N2N/CCD Import ABG Base Excess 0 mEq/L 18 ABG Hco3 22 mEq/L 22-26 ABG O2 Saturation 96 % 90-99 Allens Test Performed? Yes Arterial Blood Gas Fio2 21 % 20-101 Arterial Blood Gas Pco2 29 mmHg Low 35-45 Arterial Blood Gas Po2 81 mmHg 80-105 Arterial Blood Gas Site L.Rad.Art. Arterial Blood Gas Type Room Air Arterial Blood Gas pH 7.51 1 High 7.35-7.45 Laboratory test 07/23/2016 N2N/CCD Import Free T3 4.02 pg/mL High 2.18- 3.98 19 finding Free T4 1.70 ng/dL High 0.76-1.46 Glycohemoglobin (A1c) 6.8 % High 4.2-6.3 20 Reflex add FT3? Y Reflex add FT4? Y Thyroid Stim Hormone < 0.01 uIU/mL Low 0.3-4.2 eAG 148 mg/dL Comprehensive Metabolic Panel 07/23/2016 N2N/CCD Import Alb/Glob 1.2 ratio Albumin 3.9 g/dL 3.4-5 Alkaline Phosphatase 121 U/L High 45-117 Anion Gap 4 mEq/L Low 8-16 BUN 22 mg/dL High 7-18 BUN/Creat 27.5 ratio Bilirubin,Total 0.3 mg/dL 0.2-1 Calcium 9.2 mg/dL 8.5-10.1 Carbon Dioxide 31 mmol/L 21-32 Chloride 104 mmol/L 98-107 Creatinine 0.8 mg/dL 0.6-1.3 Globulin 3.3 g/dL 1.9-4.3 Glom Filtration Rate, Estimate >60 mL/min Glucose 145 mg/dL High 74-106 If >60 mL/min 21 Potassium 4.4 mmol/L 3.5-5.1 Reflex add FT3? Y Reflex add FT4? Y SGPT/Alt 22 U/L 12-78 Sgot/Ast 11 U/L Low 15-37 22 Sodium 139 mmol/L 136-145 Total Protein 7.2 g/dL 6.4-8.2 Laboratory test finding 05/14/2016 N2N/CCD Import Free T3 3.53 pg/mL 2.18-3.98 23 Free T4 1.93 ng/dL High 0.76-1.46 Glycohemoglobin (A1c) 7.4 % High 4.2-6.3 24 Reflex add FT3? Y Reflex add FT4? Y Thyroid Stim Hormone < 0.01 uIU/mL Low 0.3-4.2 eAG 166 mg/dL CBC 05/14/2016 N2N/CCD Import Hematocrit 39.7 % 36-46.1 Hemoglobin 13.1 gm/dL 11.6-15.8 Mean Cell Volume 88.4 fl 80.9-99 Mean Corpuscular HGB 29.2 pg 25.9-32.7 Mean Corpuscular HGB Conc 33.0 g/dL 30.8-34.3 Mean Platelet Volume 10.2 fL 8.9-12.4 Platelet Count 262 K/uL 150-400 Red Blood Count 4.49 M/uL 3.9-5.4 Red Cell Distri Width %CV 14.0 % 11.7-14.4 White Blood Count 5.3 K/uL 3.1-10.7 Comprehensive Metabolic Panel 05/14/2016 N2N/CCD Import Alb/Glob 1.1 ratio Albumin 3.8 g/dL 3.4-5 Alkaline Phosphatase 121 U/L High 45-117 Anion Gap 8 mEq/L 8-16 BUN 19 mg/dL High 7-18 BUN/Creat 21.1 ratio Bilirubin,Total 0.3 mg/dL 0.2-1 Calcium 9.0 mg/dL 8.5-10.1 Carbon Dioxide 29 mmol/L 21-32 Chloride 103 mmol/L 98-107 Creatinine 0.9 mg/dL 0.6-1.3 Globulin 3.6 g/dL 1.9-4.3 Glom Filtration Rate, Estimate >60 mL/min Glucose 144 mg/dL High 74-106 If >60 mL/min 25 Potassium 4.3 mmol/L 3.5-5.1 Reflex add FT3? Y Reflex add FT4? Y SGPT/Alt 35 U/L 12-78 Sgot/Ast 19 U/L 15-37 Sodium 140 mmol/L 136-145 Total Protein 7.4 g/dL 6.4-8.2 Microalbumin,Random Urine 05/14/2016 N2N/CCD Import Microalbumin,Urine 8.9 mg/L Comprehensive Metabolic 01/15/2016 N2N/CCD Import Alb/Glob 1.1 ratio 26 Panel Albumin 3.8 g/dL 3.4-5 Alkaline Phosphatase 117 U/L 45-117 Anion Gap 8 mEq/L 8-16 BUN 20 mg/dL High 7-18 BUN/Creat 22.2 ratio Bilirubin,Total 0.4 mg/dL 0.2-1 Calcium 9.4 mg/dL 8.5-10.1 Carbon Dioxide 28 mmol/L 21-32 Chloride 104 mmol/L 98-107 Creatinine 0.9 mg/dL 0.6-1.3 Globulin 3.6 g/dL 1.9-4.3 Glom Filtration Rate, Estimate >60 mL/min Glucose 123 mg/dL High 74-106 If >60 mL/min 27 Potassium 4.0 mmol/L 3.5-5.1 SGPT/Alt 20 U/L 12-78 Sgot/Ast 19 U/L 15-37 Sodium 140 mmol/L 136-145 Total Protein 7.4 g/dL 6.4-8.2 CBC 01/15/2016 [employer] Import Hematocrit 39.4 % 36-46.1 Hemoglobin 13.2 gm/dL 11.6-15.8 Mean Cell Volume 87.9 fl 80.9-99 Mean Corpuscular HGB 29.5 pg 25.9-32.7 Mean Corpuscular HGB Conc 33.5 g/dL 30.8-34.3 Mean Platelet Volume 10.0 fL 8.9-12.4 Platelet Count 270 K/uL 155-360 Red Blood Count 4.48 M/uL 3.9-5.4 Red Cell Distri Width %CV 12.9 % 11.7-14.4 White Blood Count 4.5 K/uL 3.1-10.7 Laboratory test 01/15/2016 [employer] Import C-Reactive 1.87 mg/L finding Protein,Cardiac Glycohemoglobin (A1c) 6.6 % High 4.2-6.3 28 eAG 143 mg/dL Laboratory test 10/17/2015 [employer] Import Glycohemoglobin (A1c) 6.2 % 4.2-6.3 29 finding Microalbumin,Random Urine < 5.0 mg/L eAG 131 mg/dL Comprehensive Metabolic Panel 10/17/2015 [employer] Import Alb/Glob 1.0 ratio Albumin 3.7 g/dL 3.4-5 Alkaline Phosphatase 105 U/L 45-117 Anion Gap 7 mEq/L Low 8-16 BUN 29 mg/dL High 7-18 BUN/Creat 32.2 ratio Bilirubin,Total 0.3 mg/dL 0.2-1 Calcium 9.5 mg/dL 8.5-10.1 Carbon Dioxide 26 mmol/L 21-32 Chloride 106 mmol/L 98-107 Creatinine 0.9 mg/dL 0.6-1.3 Globulin 3.6 g/dL 1.9-4.3 Glom Filtration Rate, Estimate >60 mL/min Glucose 127 mg/dL High 74-106 If >60 mL/min 30 Potassium 4.6 mmol/L 3.5-5.1 SGPT/Alt 27 U/L 12-78 Sgot/Ast 15 U/L 15-37 Sodium 139 mmol/L 136-145 Total Protein 7.3 g/dL 6.4-8.2 Laboratory test 07/14/2015 N2N/CCD Import Glycohemoglobin (A1c) 5.9 % 4.2-6.3 31 finding Microalbumin,Random Urine < 5.0 mg/L eAG 123 mg/dL CBS W/Automated Diff 07/14/2015 N2N/CCD Import Bas% 0.3 % 0-1.1 Baso # 0.02 K/uL 0-0.1 Eo% 1.3 % 0-6.6 Eos # 0.08 K/uL 0-0.5 Hematocrit 35.1 % Low 36-46.1 Hemoglobin 12.0 gm/dL 11.6-15.8 Lymph # 1.03 K/uL Low 1.8-7 Lymph % 16.3 % Low 17-46.1 Mean Cell Volume 87.1 fl 80.9-99 Mean Corpuscular HGB 29.8 pg 25.9-32.7 Mean Corpuscular HGB Conc 34.2 g/dL 30.8-34.3 Mean Platelet Volume 10.4 fL 8.9-12.4 [place] # 0.49 K/uL 0.3-0.9 [place] % 7.8 % 4.3-13.2 Neut# 4.68 K/uL 1.8-7 Neut% 74.3 % High 40.4-72.8 Platelet Count 287 K/uL 155-360 Red Blood Count 4.03 M/uL 3.9-5.4 Red Cell Distri Width %CV 12.7 % 11.7-14.4 Red Cell Distri Width SD 38.7 fl 3-47 White Blood Count 6.3 K/uL 3.1-10.7 Comprehensive Metabolic Panel 07/14/2015 N2N/CCD Import Alb/Glob 1.1 ratio Albumin 3.5 g/dL 3.4-5 Alkaline Phosphatase 96 U/L 45-117 Anion Gap 10 mEq/L 8-16 BUN 22 mg/dL High 7-18 BUN/Creat 31.4 ratio Bilirubin,Total 0.2 mg/dL 0.2-1 Calcium 10.2 mg/dL High 8.5-10.1 Carbon Dioxide 27 mmol/L 21-32 Chloride 104 mmol/L 98-107 Creatinine 0.7 mg/dL 0.6-1.3 Globulin 3.3 g/dL 1.9-4.3 Glom Filtration Rate, Estimate >60 mL/min Glucose 91 mg/dL 74-106 If >60 mL/min 32 Potassium 4.3 mmol/L 3.5-5.1 SGPT/Alt 25 U/L 12-78 Sgot/Ast 15 U/L 15-37 Sodium 141 mmol/L 136-145 Total Protein 6.8 g/dL 6.4-8.2 LDL Cholesterol Profile 07/14/2015 N2N/CCD Import Cholesterol 113 mg/dL 33 HDL Cholesterol 29 mg/dL Low 34 LDL-Cholesterol 58 mg/dL 35 Triglycerides 131 mg/dL 36 Comprehensive Metabolic Panel 10/15/2014 N2N/CCD Import Alb/Glob 1.0 ratio Albumin 3.7 g/dL 3.4-5 Alkaline Phosphatase 88 U/L 45-117 Anion Gap 5 mEq/L Low 8-16 BUN 20 mg/dL High 7-18 BUN/Creat 22.2 ratio Bilirubin,Total 0.3 mg/dL 0.2-1 Calcium 8.9 mg/dL 8.5-10.1 Carbon Dioxide 29 mmol/L 21-32 Chloride 103 mmol/L 98-107 Creatinine 0.9 mg/dL 0.6-1.3 Globulin 3.6 g/dL 1.9-4.3 Glom Filtration Rate, Estimate >60 mL/min Glucose 111 mg/dL High 74-106 If >60 mL/min 37 Potassium 4.3 mmol/L 3.5-5.1 SGPT/Alt 17 U/L 12-78 Sgot/Ast 10 U/L Low 15-37 38 Sodium 137 mmol/L 136-145 Total Protein 7.3 g/dL 6.4-8.2 CBC 10/15/2014 N2N/CCD Import Hematocrit 36.8 % 36-46.1 Hemoglobin 12.5 gm/dL 11.6-15.8 Mean Cell Volume 89.1 fl 80.9-99 Mean Corpuscular HGB 30.3 pg 25.9-32.7 Mean Corpuscular HGB Conc 34.0 g/dL 30.8-34.3 Mean Platelet Volume 10.4 fL 8.9-12.4 Platelet Count 253 K/uL 155-360 Red Blood Count 4.13 M/uL 3.9-5.4 Red Cell Distri Width %CV 13.2 % 11.7-14.4 White Blood Count 4.4 K/uL 3.1-10.7 Laboratory test 10/15/2014 N2N/CCD Import Glycohemoglobin (A1c) 5.9 % 4.2-6.3 39 finding Microalbumin,Random Urine 8.5 mg/L eAG 123 mg/dL Laboratory test 09/17/2014 [facility] Surgical SEE RESULT [address] [place] [address] [phone] Laboratory test 09/17/2014 [facility] Point of Care 95 mg/dL N 74-106 [address] [place] [address] [phone] Laboratory test 07/08/2014 N2N/CCD Import C-Reactive 0.98 mg/L finding Protein,Cardiac Homocyst(E)Ine, Plasma 12.9 umol/L 0-15 42 Vitamin D,25-Hydroxy 149.0 ng/mL High 30-100 43 LDL Cholesterol Profile 07/08/2014 N2N/CCD Import Cholesterol 143 mg/dL 44 HDL Cholesterol 33 mg/dL 45 LDL-Cholesterol 77 mg/dL 46 Triglycerides 166 mg/dL 47 LDL Cholesterol Profile 03/15/2014 N2N/CCD Import Cholesterol 188 mg/dL 48 HDL Cholesterol 29 mg/dL 49 LDL-Cholesterol 118 mg/dL 50 Triglycerides 204 mg/dL 51 Laboratory test finding 03/15/2014 N2N/CCD Import Free T3 3.23 pg/mL 2.18-3.98 Free T4 1.41 ng/dL 0.76-1.46 TSH Reflex FT4 and/or FT3 < 0.01 uIU/mL Low 0.36-3.74 52 CBC W/Automated Diff 03/15/2014 N2N/CCD Import Bas% 0.6 % 0-1.1 Baso # 0.03 K/uL 0-0.1 Eo% 1.6 % 0-6.6 Eos # 0.08 K/uL 0-0.5 Hematocrit 37.4 % 36-46.1 Hemoglobin 12.5 gm/dL 11.6-15.8 Lymph # 0.89 K/uL 0.8-3.4 Lymph % 17.6 % 17-46.1 Mean Cell Volume 89.7 fl 80.9-99 Mean Corpuscular HGB 30.0 pg 25.9-32.7 Mean Corpuscular HGB Conc 33.4 g/dL 30.8-34.3 Mean Platelet Volume 10.2 fL 8.9-12.4 [place] # 0.49 K/uL 0.3-0.9 [place] % 9.7 % 4.3-13.2 Neut# 3.58 K/uL 1-7 Neut% 70.5 % 40.4-72.8 Platelet Count 274 K/uL 155-360 Red Blood Count 4.17 M/uL 3.9-5.4 Red Cell Distri Width %CV 13.5 % 11.7-14.4 Red Cell Distri Width SD 42.6 fl 3-47 White Blood Count 5.1 K/uL 3.1-10.7 Comprehensive Metabolic Panel 02/05/2014 N2N/CCD Import Alb/Glob 1.1 ratio Albumin 3.9 g/dL 3.4-5 Alkaline Phosphatase 91 U/L 45-117 Anion Gap 9 mEq/L 8-16 BUN 22 mg/dL High 7-18 BUN/Creat 22.0 ratio Bilirubin,Total 0.2 mg/dL 0.2-1 Calcium 9.5 mg/dL 8.5-10.1 Carbon Dioxide 30 mmol/L 21-32 Chloride 106 mmol/L 98-107 Creatinine 1.0 mg/dL 0.6-1.3 Globulin 3.5 g/dL 1.9-4.3 Glom Filtration Rate, Estimate 58 mL/min Glucose 99 mg/dL 74-106 If >60 mL/min 53 Potassium 4.5 mmol/L 3.5-5.1 SGPT/Alt 16 U/L 12-78 Sgot/Ast 14 U/L Low 15-37 54 Sodium 140 mmol/L 136-145 Total Protein 7.4 g/dL 6.4-8.2 Laboratory test 02/05/2014 N2N/[employer] Import Glycohemoglobin (A1c) 6.1 % 4.2-6.3 55 finding Microalbumin,Random Urine 6.7 mg/L Thyroid Stim Hormone < 0.01 uIU/mL Low 0.36-3.74 56 eAG 128 mg/dL CBC 02/05/2014 N2N/[employer] Import Hematocrit 36.6 % 36-46.1 Hemoglobin 12.2 gm/dL 11.6-15.8 Mean Cell Volume 88.8 fl 80.9-99 Mean Corpuscular HGB 29.6 pg 25.9-32.7 Mean Corpuscular HGB Conc 33.3 g/dL 30.8-34.3 Mean Platelet Volume 10.7 fL 8.9-12.4 Platelet Count 228 K/uL 155-360 Red Blood Count 4.12 M/uL 3.9-5.4 Red Cell Distri Width %CV 12.5 % 11.7-14.4 White Blood Count 6.2 K/uL 3.1-10.7 LDL Cholesterol Profile 06/28/2013 [employer] Import Cholesterol 191 mg/dL 120-200 HDL Cholesterol 35 mg/dL 29-83 LDL-Cholesterol 120 mg/dL 62-185 Triglycerides 181 mg/dL 16-231 Laboratory test 06/28/2013 [employer] Import Glycohemoglobin (A1c) 6.4 % High 4.8-6 57 finding Microalbumin,Random Urine 12.6 mg/L 0-18.5 eAG 137 mg/dL Comprehensive Metabolic Panel 06/28/2013 [employer] Import Alb/Glob 1.1 ratio Albumin 4.0 g/dL 3.5-5 Alkaline Phosphatase 88 U/L 50-136 Anion Gap 12 mEq/L 8-16 BUN 19 mg/dL 5-23 BUN/Creat 19.0 ratio Bilirubin,Total 0.4 mg/dL 0.2-1.2 Calcium 9.0 mg/dL 8.5-10.1 Carbon Dioxide 30 mEq/L High 18-29 Chloride 102 mmol/L 98-107 Creatinine 1.0 mg/dL 0.5-1.4 Globulin 3.7 g/dL 1.9-4.3 Glom Filtration Rate, Estimate 58 mL/min Glucose 118 mg/dL High 76-115 If >60 mL/min 58 Potassium 4.3 mmol/L 3.5-5.1 SGPT/Alt 19 U/L Low 30-65 Sgot/Ast 16 U/L 16-40 Sodium 140 mmol/L 136-145 Total Protein 7.7 g/dL 6.3-8 Laboratory test finding 11/27/2012 N2N/CCD Import Urine Culture See Note 59 Urinalysis With 11/27/2012 N2N/CCD Import Urine Amorph Very Few Microscopic Sediment Urine Bacteria Very Few [place] Urine Bilirubin - Dipstick Negative Urine Blood Negative Urine Clarity Clear Urine Color Yellow Urine Epithelial Cells Few [place]/lpf Urine Glucose - Dipstick Negative mg/dL Urine Ketone Negative mg/dL Urine Leuk Esterase Negative Urine Nitrite - Dipstick Negative Urine PH 6.0 1 Low 6.5-7.5 Urine Protein - Dipstick Negative mg/dL Urine RBC 0-2 rbc/hpf 0-7 Urine Specific [place] <=1.005 Low 1.01-1.03 Urine Uric Acid Crystals Few [place] Urine Urobilinogen - Dipstick 0.2 E.U./dL 0.2-1 Urine WBC 0-2 wbc/hpf 0-7 Urine Microscopic 06/13/2012 N2N/CCD Import Urine Bacteria Few [place] Urine Epithelial Cells Few [place]/lpf Urine Fine Gran Cast 0-2 [place]#/lp Urine Hyaline Cast 0-2 [place]#/lp Urine Mucus Small [place] Urine RBC None Seen rbc/hpf 0-7 Urine WBC 0-2 wbc/hpf 0-7 Laboratory test 06/13/2012 N2N/CCD Import Urine Culture See Note 60 finding Laboratory test 06/09/2012 N2N/CCD Import Urine Culture See Note 61 finding Laboratory test 05/26/2012 N2N/CCD Import Urine Culture See Note 62 finding Laboratory test 01/26/2012 N2N/CCD Import Glycohemoglobin (A1c) 6.2 % High 4.8-6 63 finding Microalbumin,Random Urine 6.2 mg/L 0-18.5 Urine Screen See Note 64 eAG 131 mg/dL CBS W/Automated Diff 01/26/2012 N2N/CCD Import Bas% 0.6 % 0-1.1 Baso # 0.03 K/uL 0-0.1 Eo% 1.2 % 0-6.6 Eos # 0.06 K/uL 0-0.5 Hematocrit 39.7 % 36-46.1 Hemoglobin 14.0 gm/dL 11.6-15.8 Lymph # 0.75 K/uL Low 0.8-3.4 Lymph % 15.5 % Low 17-46.1 Mean Cell Volume 90.0 fl 80.9-99 Mean Corpuscular HGB 31.7 pg 25.9-32.7 Mean Corpuscular HGB Conc 35.3 g/dL High 30.8-34.3 Mean Platelet Volume 10.5 fL 8.9-12.4 [place] # 0.42 K/uL 0.3-0.9 [place] % 8.7 % 4.3-13.2 Neut# 3.59 K/uL 1-7 Neut% 74.0 % High 40.4-72.8 Platelet Count 268 K/uL 155-360 Red Blood Count 4.41 M/uL 3.9-5.4 Red Cell Distri Width %CV 12.9 % 11.7-14.4 Red Cell Distri Width SD 41.4 fl 3-47 White Blood Count 4.9 K/uL 3.1-10.7 Comprehensive Metabolic Panel 01/26/2012 N2N/CCD Import Alb/Glob 1.1 ratio Albumin 4.0 g/dL 3.5-5 Alkaline Phosphatase 68 U/L 50-136 Anion Gap 10 mEq/L 8-16 BUN 16 mg/dL 5-23 BUN/Creat 20.0 ratio Bilirubin,Total 0.4 mg/dL 0.2-1.2 Calcium 8.9 mg/dL 8.5-10.1 Carbon Dioxide 29 mEq/L 18-29 Chloride 105 mmol/L 98-107 Creatinine 0.8 mg/dL 0.5-1.4 Globulin 3.6 g/dL 1.9-4.3 Glom Filtration Rate, Estimate >60 mL/min Glucose 134 mg/dL High 76-115 If >60 mL/min 65 Potassium 4.2 mmol/L 3.5-5.1 SGPT/Alt 19 U/L Low 30-65 Sgot/Ast 13 U/L Low 16-40 Sodium 140 mmol/L 136-145 Total Protein 7.6 g/dL 6.3-8 LDL Cholesterol Profile 01/26/2012 N2N/CCD Import Cholesterol 175 mg/dL 120-200 HDL Cholesterol 32 mg/dL 29-83 LDL-Cholesterol 99 mg/dL 62-185 Triglycerides 218 mg/dL 16-231 Urinalysis With 01/26/2012 N2N/CCD Import Urine Amorph Very Few Microscopic Sediment Urine Bacteria Very Few [place]een Urine Bilirubin - Dipstick Negative Urine Blood Negative Urine Clarity Clear Urine Color Yellow Urine Epithelial Cells Very Few [place]/lpf Urine Glucose - Dipstick Negative mg/dL Urine Ketone Negative mg/dL Urine Leuk Esterase Small High Urine Nitrite - Dipstick Negative Urine PH 8.0 1 High 6.5-7.5 Urine Protein - Dipstick Negative mg/dL Urine RBC 0-2 rbc/hpf 0-7 Urine Specific [place] 1.010 1 1.01-1.03 Urine Urobilinogen - Dipstick 0.2 E.U./dL 0.2-1 Urine WBC 2-5 wbc/hpf 0-7 Imaging finding 10/07/2011 N2N/CCD Import CT of the abdomen <pending> and pelvis with contrast Laboratory test 10/06/2011 N2N/CCD Import Amylase 44 U/L 18-98 66 finding Basic Metabolic 10/06/2011 N2N/CCD Import Anion Gap 11 mEq/L 8-16 Panel BUN 17 mg/dL 5-23 BUN/Creat 17.0 ratio Calcium 8.9 mg/dL 8.5-10.1 Carbon Dioxide 28 mEq/L 18-29 Chloride 106 mmol/L 98-107 Creatinine 1.0 mg/dL 0.5-1.4 Glom Filtration Rate, Estimate 59 mL/min Glucose 152 mg/dL High 76-115 If >60 mL/min 67 Potassium 4.2 mmol/L 3.5-5.1 Sodium 141 mmol/L 136-145 CBC 10/06/2011 N2N/CCD Import Hematocrit 38.7 % 36-46.1 Hemoglobin 13.6 gm/dL 11.6-15.8 Mean Cell Volume 90.4 fl 80.9-99 Mean Corpuscular HGB 31.8 pg 25.9-32.7 Mean Corpuscular HGB Conc 35.1 g/dL High 30.8-34.3 Mean Platelet Volume 9.6 fL 8.9-12.4 Platelet Count 289 K/uL 155-360 Red Blood Count 4.28 M/uL 3.9-5.4 Red Cell Distri Width %CV 12.6 % 11.7-14.4 White Blood Count 6.0 K/uL 3.1-10.7 Laboratory test 09/21/2011 N2N/CCD Import Glycohemoglobin (A1c) 6.2 % High 4.8-6 68 finding eAG 131 mg/dL Basic Metabolic Panel 09/21/2011 N2N/CCD Import Anion Gap 13 mEq/L 8-16 BUN 21 mg/dL 5-23 BUN/Creat 19.0 ratio Calcium 8.8 mg/dL 8.5-10.1 Carbon Dioxide 27 mEq/L 18-29 Chloride 104 mmol/L 98-107 Creatinine 1.1 mg/dL 0.5-1.4 Glom Filtration Rate, Estimate 53 mL/min Glucose 131 mg/dL High 76-115 If >60 mL/min 69 Potassium 4.3 mmol/L 3.5-5.1 Sodium 140 mmol/L 136-145 Liver Function Tests 09/21/2011 N2N/CCD Import Alb/Glob 1.1 ratio Albumin 3.9 g/dL 3.5-5 Alkaline Phosphatase 58 U/L 50-136 Bilirubin,Direct < 0.1 mg/dL Low 0.1-0.4 Bilirubin,Indirect 0.6 mg/dL 0-0.9 Bilirubin,Total 0.7 mg/dL 0.2-1.2 Globulin 3.4 g/dL 1.9-4.3 SGPT/Alt 23 U/L Low 30-65 Sgot/Ast 15 U/L Low 16-40 Total Protein 7.3 g/dL 6.3-8 1 Because ethnic data is not always [...] 5 Kidney failure <15 (or dialysis) 2 Because ethnic data is not always readily [...] 15-29 5 Kidney failure <15 (or dialysis) 3 Because ethnic data is not always readily [...] 15-29 5 Kidney failure <15 (or dialysis) 4 Because ethnic data is not always readily [...] 15-29 5 Kidney failure <15 (or dialysis) 5 C64.1, C78.7, C78.89, C78.01, E11.9, I10, E03.9 6 Elevated levels of HbA1c suggest the need for more aggressive treatment of glycemia. The [place] [employer] recommends that a primary goal of therapy should be a HbA1c of <7% and that physicians should re-evaluate the treatment regimen in patients with HbA1c values consistently >8%. 7 Reference Guidelines*: Desirable: ........... < 200 mg/dL Borderline High: ..... 200-239 mg/dL High: ................ >=240 mg/dL * The National Cholesterol Education Program (NCEP) 8 Reference Guidelines*: Low HDL: ..... < 40 mg/dL Normal: ..... 40-60 mg/dL Desirable: ... > 60 mg/dL *The National Cholesterol Education Program(NCEP) 9 Reference Guidelines*: Optimal:........... <100 mg/dL Near Optimal....... 100-129 mg/dL Borderline High.... 130-159 mg/dL High............... 160-189 mg/dL Very High.......... >=190 mg/dL * Source: National Cholesterol Education Program (NCEP) 10 Reference Guidelines*: Normal: ............. < 150 mg/dL Borderline High: .... 150-199 mg/dL High: ............... 200-499 mg/dL Very High: .......... > 500 mg/dL * Source: National Cholesterol Education Program (NCEP) 11 Note: Persistent reduction for 3 months or more in an eGFR <60 mL/min/1.73 m2 defines CKD. Patients with eGFR values >/=60 mL/min/1.73 m2 may also have CKD if evidence of persistent proteinuria is present. The original MDRD equation for estimated GFR is not valid for patients less than 18 years of age. Additional information may be found at www.[email or web address]. 12 Because ethnic data is not always readily [...] 15-29 5 Kidney failure <15 (or dialysis) 13 Email Operations Manager: [id number] 14 E07.9,Z85.850 15 E11.9 I10 16 Note: Persistent reduction for 3 months or more in an eGFR <60 mL/min/1.73 m2 defines CKD. Patients with eGFR values >/=60 mL/min/1.73 m2 may also have CKD if evidence of persistent proteinuria is present. The original MDRD equation for estimated GFR is not valid for patients less than 18 years of age. Additional information may be found at www.[email or web address]. 17 Elevated levels of HbA1c suggest the need for more aggressive treatment of glycemia. The [place] [employer] recommends that a primary goal of therapy should be a HbA1c of <7% and that physicians should re-evaluate the treatment regimen in patients with HbA1c values consistently >8%. 18 SOB 19 E11.9 E03.9 20 Elevated levels of HbA1c suggest the need for more aggressive treatment of glycemia. The [place] [employer] recommends that a primary goal of therapy should be a HbA1c of <7% and that physicians should re-evaluate the treatment regimen in patients with HbA1c values consistently >8%. 21 Note: Persistent reduction for 3 months or more in an eGFR <60 mL/min/1.73 m2 defines CKD. Patients with eGFR values >/=60 mL/min/1.73 m2 may also have CKD if evidence of persistent proteinuria is present. The original MDRD equation for estimated GFR is not valid for patients less than 18 years of age. Additional information may be found at www.[email or web address]. 22 Values below the stated reference ranges of AST and ALT can be seen in normal populations. Clinical correlation is suggested. 23 E11.9 I10 E03.9 24 Elevated levels of HbA1c suggest the need for more aggressive treatment of glycemia. The [place] [employer] recommends that a primary goal of therapy should be a HbA1c of <7% and that physicians should re-evaluate the treatment regimen in patients with HbA1c values consistently >8%. 25 Note: Persistent reduction for 3 months or more in an eGFR <60 mL/min/1.73 m2 defines CKD. Patients with eGFR values >/=60 mL/min/1.73 m2 may also have CKD if evidence of persistent proteinuria is present. The original MDRD equation for estimated GFR is not valid for patients less than 18 years of age. Additional information may be found at [email or web address]. 26 E11.9 I10 C80.0 27 Note: Persistent reduction for 3 months or more in an eGFR <60 mL/min/1.73 m2 defines CKD. Patients with eGFR values >/=60 mL/min/1.73 m2 may also have CKD if evidence of persistent proteinuria is present. The original MDRD equation for estimated GFR is not valid for patients less than 18 years of age. Additional information may be found at www.[email or web address]. 28 Elevated levels of HbA1c suggest the need for more aggressive treatment of glycemia. The [place] [employer] recommends that a primary goal of therapy should be a HbA1c of <7% and that physicians should re-evaluate the treatment regimen in patients with HbA1c values consistently >8%. 29 Elevated levels of HbA1c suggest the need for more aggressive treatment of glycemia. The [place] [employer] recommends that a primary goal of therapy should be a HbA1c of <7% and that physicians should re-evaluate the treatment regimen in patients with HbA1c values consistently >8%. 30 Note: Persistent reduction for 3 months or more in an eGFR <60 mL/min/1.73 m2 defines CKD. Patients with eGFR values >/=60 mL/min/1.73 m2 may also have CKD if evidence of persistent proteinuria is present. The original MDRD equation for estimated GFR is not valid for patients less than 18 years of age. Additional information may be found at www.[email or web address]. 31 Elevated levels of HbA1c suggest the need for more aggressive treatment of glycemia. The [place] [employer] recommends that a primary goal of therapy should be a HbA1c of <7% and that physicians should re-evaluate the treatment regimen in patients with HbA1c values consistently >8%. 32 Note: Persistent reduction for 3 months or more in an eGFR <60 mL/min/1.73 m2 defines CKD. Patients with eGFR values >/=60 mL/min/1.73 m2 may also have CKD if evidence of persistent proteinuria is present. The original MDRD equation for estimated GFR is not valid for patients less than 18 years of age. Additional information may be found at www.[email or web address]. 33 Reference Guidelines*: Desirable: ........... < 200 mg/dL Borderline High: ..... 200-239 mg/dL High: ................ >=240 mg/dL * The National Cholesterol Education Program (NCEP) 34 Reference Guidelines*: Low HDL: ..... < 40 mg/dL Normal: ..... 40-60 mg/dL Desirable: ... > 60 mg/dL *The National Cholesterol Education Program(NCEP) 35 Reference Guidelines*: Optimal:........... <100 mg/dL Near Optimal....... 100-129 mg/dL Borderline High.... 130-159 mg/dL High............... 160-189 mg/dL Very High.......... >=190 mg/dL * Source: National Cholesterol Education Program (NCEP) 36 Reference Guidelines*: Normal: ............. < 150 mg/dL Borderline High: .... 150-199 mg/dL High: ............... 200-499 mg/dL Very High: .......... > 500 mg/dL * Source: National Cholesterol Education Program (NCEP) 37 Note: Persistent reduction for 3 months or more in an eGFR <60 mL/min/1.73 m2 defines CKD. Patients with eGFR values >/=60 mL/min/1.73 m2 may also have CKD if evidence of persistent proteinuria is present. The original MDRD equation for estimated GFR is not valid for patients less than 18 years of age. Additional information may be found at www.[email or web address]. 38 Values below the stated reference ranges of AST and ALT can be seen in normal populations. Clinical correlation is suggested. 39 Elevated levels of HbA1c suggest the need for more aggressive treatment of glycemia. The [place] [employer] Association recommends that a primary goal of therapy should be a HbA1c of <7% and that physicians should re-evaluate the treatment regimen in patients with HbA1c values consistently >8%. 40 SEE RESULT BELOW Name: LOLITA PIMENTEL : [address]: Shellie Clark MD Acct: [id number] Unit: [id number] AGE: 69 Location: [facility] Re09/17/14 SEX: F Status: REG [place] SPEC: [id number] CHRIS: 09/17/14-[address]: Shellie Clark MD REQ: [id number] RECD: 09/17/14 STATUS: SOUT _ ORDERED: LEVEL III FINAL DIAGNOSIS Small left finger, excision: -- Ganglion cyst. PRE-OPERATIVE DIAGNOSIS Mass left small finger GROSS DESCRIPTION The specimen is received in formalin labeled, Mass Left Small Finger, and consists of a 0.8 x 0.4 x 0.3 cm cifuentes-pink irregular and rubbery soft tissue fragment, which is submitted entirely in one cassette. Signed (signature on file) Aicha Shankar MD [id number] END OF REPORT * ML=Testing performed at Main Lab DEPARTMENT OF PATHOLOGY, [address] [place] [address] Pk Gibson M.D. Director [facility] # [id number] 41 Email Operations Manager: [id number] LEON 42 Performed at: - [facility] [address] [id number] Ux Interaction Designer: Chikis Manuel MD, Phone: [phone] 43 Vitamin D deficiency has been defined by the [place] of [employer] and an Endocrine Society practice guideline as a level of serum 25-OH vitamin D less than 20 ng/mL (1,2). The Endocrine Society went on to further define vitamin D insufficiency as a level between 21 and 29 ng/mL (2). 1. IOM ([place] of [employer]). 2010. Dietary reference intakes for calcium and D. [place]: The National Academies Press. 2. Warren ABREU, Alyssa GARDNER, Mary DAVIS, et al. Evaluation, treatment, and prevention of vitamin D deficiency: an Endocrine Society clinical practice guideline. JCEM. 2010; 96(7):1911-30. Performed at: RN - [facility] [address] [id number] Ux Interaction Designer: Chikis Manuel MD, Phone: [phone] 44 Reference Guidelines*: Desirable: ........... < 200 mg/dL Borderline High: ..... 200-239 mg/dL High: ................ >=240 mg/dL * The National Cholesterol Education Program (NCEP) 45 Reference Guidelines*: Low HDL: ..... < 40 mg/dL Normal: ..... 40-60 mg/dL Desirable: ... > 60 mg/dL *The National Cholesterol Education Program(NCEP) 46 Reference Guidelines*: Optimal:........... <100 mg/dL Near Optimal....... 100-129 mg/dL Borderline High.... 130-159 mg/dL High............... 160-189 mg/dL Very High.......... >=190 mg/dL * Source: National Cholesterol Education Program (NCEP) 47 Reference Guidelines*: Normal: ............. < 150 mg/dL Borderline High: .... 150-199 mg/dL High: ............... 200-499 mg/dL Very High: .......... > 500 mg/dL * Source: National Cholesterol Education Program (NCEP) 48 Reference Guidelines*: Desirable: ........... < 200 mg/dL Borderline High: ..... 200-239 mg/dL High: ................ >=240 mg/dL * The National Cholesterol Education Program (NCEP) 49 Reference Guidelines*: Low HDL: ..... < 40 mg/dL Normal: ..... 40-60 mg/dL Desirable: ... > 60 mg/dL *The National Cholesterol Education Program(NCEP) 50 Reference Guidelines*: Optimal:........... <100 mg/dL Near Optimal....... 100-129 mg/dL Borderline High.... 130-159 mg/dL High............... 160-189 mg/dL Very High.......... >=190 mg/dL * Source: National Cholesterol Education Program (NCEP) 51 Reference Guidelines*: Normal: ............. < 150 mg/dL Borderline High: .... 150-199 mg/dL High: ............... 200-499 mg/dL Very High: .......... > 500 mg/dL * Source: National Cholesterol Education Program (NCEP) 52 A low TSH should not be the sole basis for diagnosing primary hyperthyroidism, or primary hypopituitary function. Additional tests are suggested for confirmation. 53 Note: Persistent reduction for 3 months or more in an eGFR <60 mL/min/1.73 m2 defines CKD. Patients with eGFR values >/=60 mL/min/1.73 m2 may also have CKD if evidence of persistent proteinuria is present. The original MDRD equation for estimated GFR is not valid for patients less than 18 years of age. Additional information may be found at www.[email or web address]. 54 Values below the stated reference ranges of AST and ALT can be seen in normal populations. Clinical correlation is suggested. 55 Elevated levels of HbA1c suggest the need for more aggressive treatment of glycemia. The [place] [employer] recommends that a primary goal of therapy should be a HbA1c of <7% and that physicians should re-evaluate the treatment regimen in patients with HbA1c values consistently >8%. 56 Result confirmed by repeat analysis. A low TSH should not be the sole basis for diagnosing primary hyperthyroidism, or primary hypopituitary function. Additional tests are suggested for confirmation. 57 A1c value between 5.7% and 6.4% is considered at increased risk for diabetes. A1c value greater than 6.5 % is considered essentially diagnostic for Type II diabetes. Current guidelines recommend a treatment goal of <7% for diabetic patients. This method will measure glycosylated hemoglobin variants, HbS, HbG, HbH, HbWayne, HbC, HbE, etc. Other hemoglobin- opathies may give incorrect results with this test. 58 Note: Persistent reduction for 3 months or more in an eGFR <60 mL/min/1.73 m2 defines CKD. Patients with eGFR values >/=60 mL/min/1.73 m2 may also have CKD if evidence of persistent proteinuria is present. The original MDRD equation for estimated GFR is not valid for patients less than 18 years of age. Additional information may be found at www.[email or web address]. 59 COLONY COUNT ! 1,000 - 5,000 CFU/ml Organism 1 ! URETHRAL NORMA 60 NO GROWTH: FINAL REPORT 61 NO GROWTH: FINAL REPORT 62 COLONY COUNT ! 5,000 - 10,000 CFU/ml Organism 1 ! MIXED URETHRAL NORMA 63 A1c value between 5.7% and 6.4% is considered at increased risk for diabetes. A1c value greater than 6.5 % is considered essentially diagnostic for Type II diabetes. Current guidelines recommend a treatment goal of <7% for diabetic patients. This method will measure glycosylated hemoglobin variants, HbS, HbG, HbH, HbWayne, HbC, HbE, etc. Other hemoglobin- opathies may give incorrect results with this test. 64 01/26/12 LAB.CBL Deleted by [facility] 65 Note: Persistent reduction for 3 months or more in an eGFR <60 mL/min/1.73 m2 defines CKD. Patients with eGFR values >/=60 mL/min/1.73 m2 may also have CKD if evidence of persistent proteinuria is present. The original MDRD equation for estimated GFR is not valid for patients less than 18 years of age. Additional information may be found at [email or web address]. 66 CALLED BUNSHELBY AT 1102 10/06/11 by LAB.[facility] 67 Note: Persistent reduction for 3 months or more in an eGFR <60 mL/min/1.73 m2 defines CKD. Patients with eGFR values >/=60 mL/min/1.73 m2 may also have CKD if evidence of persistent proteinuria is present. The original MDRD equation for estimated GFR is not valid for patients less than 18 years of age. Additional information may be found at www.[email or web address]. 68 A1c value between 5.7% and 6.4% is considered at increased risk for diabetes. A1c value greater than 6.5 % is considered essentially diagnostic for Type II diabetes. Current guidelines recommend a treatment goal of <7% for diabetic patients. This method will measure glycosylated hemoglobin variants, HbS, HbG, HbH, HbWayne, HbC, HbE, etc. Other hemoglobin- opathies may give incorrect results with this test. 69 Note: Persistent reduction for 3 months or [...] at [email or web address]. Procedures Date Code Description Status 03/09/2017 [id number] Diabetic Retinal Eye Exam Completed 09/17/2014 28319 Excision Tendon Sheath Ganglion /Or Joint Capsule Hand Completed Or Finger 09/17/2014 61092 Excision Tendon Sheath Ganglion /Or Joint Capsule Hand Completed Or Finger 08/28/2014 28191 Rad Exam; Fingers Completed 10/08/2013 24756 Pure Tone Hearing Test, Air Completed 06/18/2013 70615 Mammography Unilateral Completed 06/18/2013 [id number] Mammogram Completed 10/17/2012 63542 Bone Density Study, Single Photon Absorptiometry Completed 10/06/2012 72623 Pure Tone-Air Condition Only Completed 09/28/2011 04090 Visual funct screen test, automated Completed 09/28/2011 98704 Pure Tone-Air Condition Only Completed 10/20/2010 55981 Colonoscopy Flexible Diagnostic Completed 10/20/2010 [id number] Colonoscopy Completed 09/10/2009 31074 Screening Vision Test Completed 09/10/2009 19654 Pure Tone-Air Condition Only Completed Encounters Type Date Location Provider Dx Diagnosis Office Visit 08/28/2014 Orthopedic Shellie Clark, 215.2 Benign Neoplasm 3:00p [facility] [place] Uppr Limb & [place] Shouldr Connective & Soft Tissue Office Visit 12/26/2013 Orthopedic Shellie Clark, 726.0 Adhesive 11:30a [facility] [place] Capsulitis Davey Shoulder Plan of Treatment Future Appointment(s):08/03/2018 9:30 am - Cedric Sandoval MD at [facility]02/05/2019 9:00 am - Cedric Sandoval MD at [facility] - Cedric Sandoval MDC64.1 Malignant neoplasm of right kidney, except renal pelvisFollow up:3 months
[2018-05-14] MEDS ORDERED: Acetaminophen TAB* 325 MG PO PRN (13:11)
[2018-05-14] MEDS ORDERED: Ondansetron INJ* 2 MG/ML VIAL IV PRN (13:11)
[2018-05-14] MEDS ORDERED: Furosemide IV* 10 MG/ML 2 ML VIAL (20 MG) IV SLOW PU ONE ×2 (13:11→16:35)
[2018-05-14] MEDS ORDERED: Dextrose 50% Syringe 50 ML* 25 GM/50 ML SYRINGE IV PUSH PRN (13:14)
[2018-05-14] MEDS ORDERED: Octreotide Acetate* 500 MCG/ML 1 ML VIAL IVPB ONE (13:19)
[2018-05-14] MEDS ORDERED: Octreotide Acetate* 50 MCG in NS 0.9% 50 ML* 50 ML IVPB STA (13:26)
[2018-05-14] MEDS ORDERED: Dextrose 50% Syringe 50 ML* 25 GM/50 ML SYRINGE IV PUSH ONE (13:45)
[2018-05-14] MEDS ORDERED: Insulin REGULAR(*) 1 UNITS UNIT IV PUSH ONE (13:46)
[2018-05-14] MEDS ORDERED: Octreotide Acetate* 500 MCG in NS 0.9% 100 ML* 100 ML IVPB SCH (14:00)
[2018-05-14] MEDS: Pantoprazole* 80 mg IN NS 80 MG/250 ML BAG IVPB SCH (14:11)
[2018-05-14] MEDS ORDERED: HYDROmorphone INJ* 0.5 MG/0.5 ML SYRINGE IV SLOW PU PRN (14:40)
--- NOTE | 2018-05-14 15:53 | HP ---
CC: Dr. Sandoval; Dr. Hudson * ADMISSION HISTORY AND PHYSICAL: DATE OF ADMISSION: 05/14/18 PRIMARY CARE PROVIDER: Dr. Sandoval. OUTPATIENT ONCOLOGIST: Dr. Hudson. MY ATTENDING WHILE IN THE HOSPITAL: Dr. Nilo Truong.* (DICTATED BY MOISES RIOS) CHIEF COMPLAINT: Massive hematemesis x12 hours. HISTORY OF PRESENT ILLNESS: Ms. Cronin is a 73-year-old female with complicated past medical history for a renal cell carcinoma diagnosed in 1994 with pulmonary metastases identified in 1997 and then further worsening in 2016 with pancreatic and hepatic metastases noted. The patient had a nephrectomy, thyroidectomy, stomach tumor removal and was recently started on Opdivo and has received 3 doses to this point. The patient was recently admitted to this hospital for acute kidney injury related to hypercalcemia, which was presumed to be from bony breakdown from metastases. The patient's PTH-related peptide was normal and her PTH was appropriately decreased. The patient was given Zometa and is currently normocalcemic. The patient was feeling in her normal state of health recently except for some aches and pains at night, for which she was taking aspirin. The patient has had no abdominal pain. The patient has been having black stools for approximately 2 months, but has never had this evaluated. The patient is not on iron supplementation, nor bismuth-containing products. The patient on the morning of 05/14/18 at approximately 2 a.m. woke up to go to the bathroom and felt sudden onset of urge to vomit and vomited up a large volume of blood. The patient continued to be nauseated. The patient had no abdominal pain associated with this. No diarrhea. The patient again vomited large volume of blood at 4 a.m. and then went to the emergency department at [facility] where the patient was identified to have a hemoglobin of 5.9. The patient was hemodynamically stable. The patient was started on a blood transfusion and transferred to [facility]. The patient upon arrival was feeling well. The patient did vomit again in transit with continued blood of decreased volume. The patient continues to have no abdominal pain, no chest pain. The patient has intermittent shortness of breath. The patient had a breathing treatment at [place]. The patient denies chest pain, lightheadedness, palpitations. The patient has been having occasional difficulty with swallowing, feeling that food has been getting stuck in her esophagus over the past several months. The patient has also lost 80 pounds over the past year. The patient uses oxygen occasionally at home for shortness of breath. The patient has never had a blood transfusion before. 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 Due to concern for brisk GI bleeding, we are asked to evaluate the patient for admission to the hospital. PAST MEDICAL HISTORY: Renal cell carcinoma; pulmonary metastases identified in 1997; current liver, pancreatic and retroperitoneal metastases, on treatment with nivolumab; hypothyroidism due to thyroidectomy; hypercalcemia, resolved; diabetes mellitus type 2, [id number]; hypertension; history of heart failure. PAST SURGICAL HISTORY: Bladder surgery, cholecystectomy, nephrectomy, oophorectomy and hysterectomy, port placement, partial thyroidectomy. MEDICATIONS: 1. Ascorbic acid 1000 mg p.o. t.i.d. 2. Liothyronine 5 mcg p.o. daily. 3. Melatonin 6 mg p.o. at bedtime. 4. Magnesium oxide 200 mg p.o. t.i.d. 5. Lysine 500 mg p.o. t.i.d. 6. Vitamin B12 1000 mcg sublingual daily. 7. Metformin 1000 mg p.o. b.i.d. 8. Iodine potassium solution 3 drops p.o. daily. 9. Cranberry concentrate 1 cap p.o. t.i.d. 10. Synthroid 137 mcg p.o. daily. 11. Vitamin E 400 units p.o. t.i.d. 12. Zinc 25 mg p.o. t.i.d. 13. Spirulina 800 mg p.o. t.i.d. 14. Cascade 900 mg p.o. daily. 15. Red yeast rice 2 tabs p.o. daily. 16. Lebeau-3 fatty acids 1 cap p.o. daily. 17. Flaxseed oil 2000 mg p.o. daily. 18. Vitamin D3 5000 units p.o. t.i.d. ALLERGIES: MORPHINE, PENICILLIN. FAMILY HISTORY: The patient's mother of dementia and diabetes mellitus. The patient's father of CHF. The patient has 3 siblings who of unknown cancers. SOCIAL HISTORY: The patient smoked half pack a day from her teenage years until 1979. The patient also quit drinking in 1979. The patient denies any illicit drug use. 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 The patient is and has 2 children. The patient's surrogate decision maker will be her , Daniel Cronin. REVIEW OF SYSTEMS: A 14-point review of systems was reviewed and is negative except as above in the HPI. PHYSICAL EXAMINATION GENERAL: The patient is a 73-year-old pale female, who appears her stated age and sitting comfortably in bed in no acute distress. VITAL SIGNS: At the time of evaluation, temperature 99.9, pulse rate 73, respiratory rate 31, oxygen saturation 96% on room air, blood pressure 131/35. HEENT: Head: Normocephalic, atraumatic. Sclerae anicteric. No conjunctival injection. Nasal mucosa moist. Oral mucosa moist. No pharyngeal erythema, discharge, or exudate. NECK: Supple, nontender. No lymphadenopathy. No carotid bruits auscultated. No JVD. RESPIRATORY: Crackles in bilateral lower lobes, otherwise clear to auscultation bilaterally. No wheezes, rales, or rhonchi. Good air exchange bilaterally. CARDIAC: Regular rate and rhythm. Grade 3/6 systolic ejection murmur heard best at the right upper sternal border. No other adventitious heart sounds. Pulses 2+ in bilateral dorsalis pedis, posterior tibialis, and radial areas. ABDOMEN: Soft, nontender, nondistended. Bowel sounds present and normoactive in all 4 quadrants. No hepatosplenomegaly. No abdominal bruits auscultated. No hepatojugular reflux. GENITOURINARY: No suprapubic or CVA tenderness. NEURO: Cranial nerves II through XII intact. No focal deficits. Alert and oriented x3. PSYCHIATRIC: Pleasant and cooperative. SKIN: Clean, dry and intact. No rash. DIAGNOSTIC STUDIES/LAB DATA: White blood cell count 5.4, hemoglobin 7.2, RDW 16 , platelet count 274. INR 1.42, aPTT 25.4. Sodium 137, potassium 6.0, chloride 113, carbon dioxide 20, anion gap 4, BUN 47, creatinine 0.88, glucose 238, calcium 7.9, bilirubin 0.7, AST 12, ALT 14, alkaline phosphatase 87, ammonia 71. Protein is 4.3, albumin 2.7, globulin 1.6. Studies: EKG shows normal sinus rhythm, left ventricular hypertrophy, rate of 63, QTc of 437. No peak T-waves. CT abdomen and pelvis from [place] read as confluent pancreatic hepatic mass with multiple pulmonary nodules, bulky right retroperitoneal mass, findings consistent with neoplasm/metastatic disease, cardiomegaly and small pericardial effusion. ASSESSMENT AND PLAN: Impression: Ms. Cronin is a 73-year-old female with past medical history significant for renal cell carcinoma, treated with nivolumab with large burden of metastatic disease as well as hypothyroidism, diabetes, hypertension, and history of heart failure with preserved ejection fraction, who presents to the emergency department after 3 episodes of large-volume hematemesis. The patient admitted to the ICU for close monitoring blood products and will be seen in consultation by Gastroenterology for EGD. 1. Upper gastrointestinal bleed. The patient has been having melanotic stools for 2 months, which she states has never been evaluated. The patient's hemoglobin has remained relatively stable to this point; however, her hemoglobin at [place] was 5.8. The patient is receiving her second unit of blood now and will receive the third at the recommendation of Gastroenterology with a goal of greater than 8 given her heart disease. The patient was found fluid overloaded. The patient will be given Lasix at this time and this will be repeated with each unit of blood. The patient has been taking aspirin. The patient has known large volume of metastases in her abdomen. EGD will further elucidate the cause of her bleeding. Immune mediated intestinal and stomach diseases are an uncommon side effect of nivolumab and this will be further elucidated again by the EGD. The patient has an elevated INR, decreased albumin. The patient is not on any blood thinners. The patient will receive fresh frozen plasma and octreotide as well, as well as pantoprazole drip. The patient will be seen in consultation by Dr. Storm Chan. There was concern for synthetic hepatic liver dysfunction due to the patient's large volume of liver metastases. 2. Hyperkalemia. The patient has hyperkalemia at 6. The patient has no EKG changes. We will get insulin dextrose and IV Lasix, which was already being given for fluid overload. Recheck in 1 hour. The patient has a history of hypercalcemia. The patient has no EKG changes. The patient will not give calcium gluconate at this time. The patient was previously on losartan, but is not taking at this time. Given the patient's gastrointestinal bleeding, potassium binding resins are not advised at this time. 3. Diabetes mellitus type 2. The patient will receive insulin and glucose as above. The patient will be monitored closely for hyper and hypoglycemia and have q.6 fingersticks after 6 initial q.1 hour fingersticks with monitoring for hypoglycemia with insulin sliding scale. The patient's metformin will be held. 4. History of heart failure with preserved ejection fraction. The patient will be monitored closely for fluid overload. The patient has a murmur consistent with aortic stenosis on her exam. The patient is likely fluid sensitive partially due to this. The patient was previously on Lasix, which was recently discontinued due to hypotension and dehydration. 5. Metastatic Renal Cell Carcinoma. Patient's care has been discussed with her outpatient Oncologist who agrees with current management. Patient has a large and worsening tumor burden and has a poor prognosis. 6. High blood pressure. The patient is currently normotensive. Hold all antihypertensives due to gastrointestinal bleeding. 7. DVT prophylaxis. SCDs in the setting of elevated INR and active gastrointestinal bleeding. 8. FEN. The patient will be n.p.o. The patient will not receive fluids except for blood and fresh frozen plasma at this time. Fluids may be added on later if the patient needs them for blood pressure support. 9. Disposition. The patient will be admitted inpatient to the ICU. Estimated length of stay greater than 2 midnights. TIME SPENT: Approximately 90 minutes spent on the admission of this patient, 30 of which was spent [id number] with the patient obtaining history and physical and discussing treatment plan. Plan was discussed with my attending, Dr. Nilo Truong, and he is in agreement. MOISES RIOS [id number]/[facility] #: [id number] KATELYN
[2018-05-14] MEDS: Insulin LISPRO* 1 UNITS UNIT SUBCUT SCH ×2 (16:13→19:58)
[2018-05-14] MEDS ORDERED: Insulin LISPRO* 1 UNITS UNIT SUBCUT SCH (16:30)
[2018-05-14] MEDS ORDERED: Sucralfate SUSP 1 GM/10 ml 10 ML UDC PO SCH (16:30)
[2018-05-14] MEDS ORDERED: Midazolam* 1 MG/ML 10 ML VIAL (10 MG) ONE (17:16)
[2018-05-14] MEDS ORDERED: fentaNYL* 50 MCG/ML 2 ML VIAL (100 MCG VIAL) ONE (17:16)
[2018-05-14 17:30] LABS: BUN/Creatinine Ratio 55.6 (8-20); Calcium 7.4 mg/dL (8.6-10.3); EGFR African American 74.1 (>60); EGFR Non-African American 61.2 (>60)
[2018-05-14] MEDS ORDERED: Famotidine IV * 20 MG in NS 0.9% 100 ML* 100 ML IV SCH (21:00)
--- NOTE | 2018-05-14 21:36 | CONS ---
GASTROENTEROLOGY CONSULT: DATE OF CONSULT: 05/14/18 CONSULTING PHYSICIANS: Taurus Hudson, Rey Adan, Cedric Sandoval. REASON FOR CONSULT: Hematemesis and passage of melena - history assisted by and daughter HISTORY OF PRESENT ILLNESS: This 73-year-old woman with metastatic renal cell cancer to lungs and liver, established care with Dr. Hudson 3 months ago and has been receiving nivolumab in monthly courses. The result of that is yet to be determined as a followup CT scan is pending next week. There was; however, recently an admission for hypercalcemia requiring Zometa and noncontrast study in the ER today may show worsening. She presented to the [place] ER today with hematemesis. There has never been any gastrointestinal bleeding in the past. She has never been treated for a peptic disorder or any kind of dyspepsia or dysphagia. She has never had upper endoscopy or been treated with an acid tanisha. She is on an unrestricted diet at home, although has felt things get stuck from time to time. She has been taking an adult aspirin at night to help her relax. She has never had any cardiac indication for taking aspirin. It has gone on many months, if not some years. She has never had a blood transfusion. She was told to take iron when she was a teenager and did so sporadically up through late 20s. She is not on iron now nor bismuth. This current illness began at 2.a.m. when she vomited up blood and did so several times. She went to [facility] where vitals were stable though her hemoglobin was 5.9. Transfusions were initiated and transferred here. She also had a CT of abd in [place]. She has only vomited once in the last 8 hours and it was a small amount in the ambulance. She denied any abdominal pain initially but then in the emergency room, with fluids and movement for various procedures, she complained of sharp abdominal pain. A repeat CT scan did not show any free air. PAST MEDICAL HISTORY: 1. Right nephrectomy in 1994 at [place]. 2. Metastatic renal disease, 1997 with alternative treatments and other followup out of town. She began treatment with Dr. Hudson, fall. 3. Cholecystectomy, . 4. Complete hysterectomy, 1978. 5. Incidental appendectomy in 1978. 6. AODM - on metformin only. 7. Hypothyroidism, on replacement after thyroidectomy. 8. Thyroidectomy. 9. History of colon polyps - she states Dr. Corona in [place] has done 5 or 6 colonoscopies. The result of the last colonoscopy, 2011, negative. FAMILY HISTORY: No history of gastrointestinal malignancy. Her mother of dementia and had diabetes. Three siblings had cancer of unknown type. SOCIAL HISTORY: She is , lives with her who is her proxy. She has a daughter living in [place]. REVIEW OF SYSTEMS: No history of aspirin use for other purposes, or Advil or naproxen. She is on an unrestricted diet. She does like to take supplements. There has been no recent fall or fracture. Her weight has gone down 60 to 80 pounds in the last year. She denied any actual gastric surgery to me or any surgery on the upper GI tract apart from the standard cholecystectomy. PHYSICAL EXAM: She is a pale woman in the ICU bed 5. Temperature 99.9, pulse 68 and regular, O2 sat on 2 L 98%, blood pressure 119/42. She is pale but in no acute distress. She is anicteric with no adenopathy. Breath sounds are equal bilaterally. Heart sounds are regular without murmur. Abdomen: Scaphoid with multiple well-healed right upper quadrant scars. The abdomen is soft and without any hernias. She is tender to deep palpation widespread in the upper abdomen but there is no guarding and it is a benign deep tenderness. Rectal: Deferred given the hematemesis and clear history of passing blood. Extremities: Show no edema. LABORATORY DATA: After 1.5 units transfused on ER arrival, 11:40 a.m.: Hemoglobin 7.2, hematocrit 21, MCV 91, platelets 274,000, INR 1.42. Baseline hemoglobin as of 05/01/18 was 10.5, just down slightly from 04/05/18 at 10.7. There are no prior INR's. BUN was 47, up just slightly from somewhat erratic baseline of 10 values between 20 and 46 over the last 2.5 months. LFTs have generally been normal with bilirubin this time up from a baseline of 0.4 to 0.7 , ALT just 14, alkaline phosphatase normal at 87 and ammonia first value ever at 71 today. Albumin had been normal up through 05/01/18 at 4.1 and is today 2.7. RADIOLOGY REVIEW: Her third CT scan here in 4 months done 04/05/18 had been interpreted as showing progression of mediastinal and hilar lymphadenopathy and stable metastases in the lung, liver and mesentery with some biliary dilation seen. Noncontrast CT done in the emergency room when she complained of acute pain was felt to be consistent with some progression of susan metastases, though no contrast was used. IMPRESSION: This 73-year-old woman with widely metastatic renal cell cancer, undergoing checkpoint inhibition therapy for salvage has had her first episode of GI bleeding. In the setting of taking an adult aspirin without any acid blockade for a number of months, peptic ulcer disease is the most likely finding and/or bleeding from peptic esophagitis influenced by aspirin. Portal hypertension is possible, though she has no ascites and it has not really had a presentation consistent with liver failure. She has been rehabilitated now with 3 units of blood and a fourth starts soon and has received 2 units of FFP. Upper endoscopy is indicated. A conversation was held with the patient and her /proxy in the room along with her daughter. She has been a do not resuscitate and will reverse that for the procedure. She cannot really decide whether she would want any surgery or not. Her daughter voiced that surgery might be unduly burdensome on her. She wished to defer decisions to postop and her accepts the responsibility of helping to prioritize with the findings of endoscopy at hand. Endoscopy with hopefully therapeutic maneuvers is planned. [id number]/[facility] #: [id number] MTDClifton
[2018-05-14 21:41] LABS: Hematocrit 24 % (35-47)
[2018-05-15] MEDS: Pantoprazole* 80 mg IN NS 80 MG/250 ML BAG IVPB SCH ×2 (01:46→09:33)
[2018-05-15] MEDS: Insulin LISPRO* 1 UNITS UNIT SUBCUT SCH ×5 (03:06→20:55)
[2018-05-15 03:41] LABS: ABS Basophils 0.1 10^3/ul (0-0.2); ABS Eosinophils 0.1 10^3/ul (0-0.6); ABS Monocytes 0.6 10^3/ul (0-0.8); ABS Neutrophils 3.5 10^3/ul (1.5-7.7); ABS Nucleated RBC 0 10^3/ul; Hematocrit 25 % (35-47); Hemoglobin 8.1 g/dl (12.0-16.0); Lymphocyte % 19.2 %; Mean Corpuscular HGB Conc 33 g/dl (31-36); Mean Corpuscular Hemoglobin 29 pg (27-31); Mean Corpuscular Volume 89 fL (80-97); Mean Platelet Volume 8.3 fL (7.4-10.4); Nucleated Red Blood Cells % 0.2; Platelet Count 182 10^3/ul (150-450); Red Blood Count 2.77 10^6/ul (4.00-5.40); Red Cell Distribution Width 17 % (10.5-15); White Blood Count 5.4 10^3/ul (3.5-10.8)
[2018-05-15 03:56] LABS: Albumin 3.1 g/dL (3.2-5.2); Albumin/Globulin Ratio 1.8 (1-3); BUN/Creatinine Ratio 42.7 (8-20); Calcium 7.9 mg/dL (8.6-10.3); EGFR African American 54.7 (>60); EGFR Non-African American 45.2 (>60); Globulin 1.7 g/dL (2-4); Magnesium 1.6 mg/dL (1.9-2.7); Potassium 4.8 mmol/L (3.5-5.0); Total Bilirubin 0.4 mg/dL (0.2-1.0); Total Protein 4.8 g/dL (6.4-8.9)
[2018-05-15] MEDS ORDERED: Magnesium Sulfate 4 GM IV IVPB ONE (05:00)
[2018-05-15] MEDS: Levothyroxine TAB* 137 MCG TAB PO SCH (05:26)
[2018-05-15] MEDS: Liothyronine TAB* 5 MCG PO SCH (07:58)
--- NOTE | 2018-05-15 09:20 | PRO ---
DATE: 05/14/18 - ROOM #411 REFERRING PHYSICIANS: Cedric Sandoval MD; Taurus Hudson MD * PROCEDURE: Upper gastrointestinal endoscopy to the distal duodenum and clipping of small antral ulcers. INDICATION: This 73-year-old woman with renal cell cancer, widely metastatic to lung, liver, and intra-abdominal sites, 3 months now, with checkpoint inhibitor treatment, recommended by Dr. Hudson, presented today to the [facility] with hematemesis. She was also passing red stool. She has been taking an adult aspirin at night for at least several months. See separate consultation. In the hospital over the last 8 hours, she has been stable with no further hematemesis or blood passage or melena. She has been transfused a total of 4 units. ENDOSCOPIST: Storm Chan M.D. MEDICATIONS: Midazolam 5.5, fentanyl 100. FINDINGS: She is a slightly pale older woman in no overt distress at this time. She was positioned on the left side down and moderate sedation induced with sequential doses of medication. EGD: Larynx - not seen with any precision. Esophagus - there was a sizable inlet patch but otherwise the proximal and mid esophageal mucosa appeared normal, intact, smooth, without any erosions or chronic changes. There was a question of an early vascular formation at 3 o' clock orientation linearly along the distal esophagus. It was minimal and easily effaced with contractions or carbon dioxide distention. EG junction at 38 was normal without any peptic change. There was a small hiatal hernia. Stomach - a moderate amount of old coffee-ground material is present. There is no active bleeding. Mucosa of the fundus, body, and antrum was closely inspected. There was some mild granular change with superficial linear erosions in the high gastric body. There is no active bleeding and no focal ulcer. In the gastric antrum, there were 4 or 5 sizable focal erosions or small ulcers. There is no adherent blood clot. Two of these lesions had slightly pigmented base and after prolonged washing, suctioning, reinspection, it was elected to clip these 2, one being about 1 o'clock orientation from the pylorus 3 cm back and the other at 3 o'clock orientation 6 or 7 cm back. Again, no active bleeding was seen. Substantial clot was suctioned out of the gastric fundus though a small amount remained. Only about 5% of mucosa remained unexpected. There was no clear abnormality of the gastric cardia. Duodenum - the pylorus, bulb, and second and third portions of the duodenum were clearly well seen and appeared normal. There was no lesion seen there. IMPRESSION: 1. Small hiatal hernia. 2. Diffuse gastritis - stop aspirin. 3. Multiple small gastric ulcers - 2 potentially culprit lesions clipped with good localization. 4. Upper gastrointestinal bleeding - not clear that another area of [place] could have been the major contributor to bleeding. It is clear they have been bleeding over a more extended period of time. PPI drip should be continued at least 24 hours and octreotide can be stopped. No further aspirin is advised. [id number]/[facility] #: [id number] [facility] [place]
[2018-05-15 09:42] LABS: Hematocrit 23 % (35-47); Hemoglobin 7.9 g/dl (12.0-16.0)
--- NOTE | 2018-05-15 10:01 | PN ---
Progress Note - Progress Note Date of Service: 05/15/18 SOAP: Subjective: [Admitted to ICU yesterday for GIB. Transfused 3U PRBCs and 2U FFP and taken to endoscopy. Multiple gastric ulcerations with 2 clipped. She has been hemodynamically stable overnight. Additional bloody BMs this am. Emma reports that she is feeling ok this am. She is anxious for water. No c/o abd pain. She was able to get up from bed and get to the bathroom this am.] Objective: [ Acetaminophen (Tylenol Tab*) 650 mg PO Q6H PRN PRN Reason: FEVER/PAIN Dextrose (D50w Syringe 50 Ml*) 12.5 gm IV PUSH .FOR FS < 60 - SS PRN PRN Reason: FS < 60 Hydromorphone HCl (Dilaudid Inj*) 0.5 mg IV SLOW PU Q4H PRN PRN Reason: PAIN Pantoprazole Sodium (Protonix Iv Bag*) 80 mg in 250 mls @ 25 mls/hr IVPB Q10H [facility] Last Admin: 05/15/18 09:33 Dose: 25 mls/hr Insulin Human Lispro (Humalog*) 0 units SUBCUT Q6H [facility]; Protocol Last Admin: 05/15/18 07:55 Dose: 1 units Levothyroxine Sodium (Synthroid Tab*) 137 mcg PO 0600 [facility] Last Admin: 05/15/18 05:26 Dose: 137 mcg Liothyronine Sodium (Cytomel Tab*) 5 mcg PO DAILY [facility] Last Admin: 05/15/18 07:58 Dose: 5 mcg Ondansetron HCl (Zofran Inj*) 4 mg IV Q6H PRN PRN Reason: NAUSEA Laboratory Results - last 24 hr 05/14/18 05/14/18 05/14/18 11:39 11:39 11:39 WBC 5.4 RBC 2.34 L Hgb 7.2 L Hct 21 L MCV 91 MCH 31 MCHC 34 RDW 16 H Plt Count 274 MPV 8.1 Neut % (Auto) 78.8 Lymph % (Auto) 12.7 [place] % (Auto) 6.2 Eos % (Auto) 0.4 Baso % (Auto) 1.9 Absolute Neuts (auto) 4.2 Absolute Lymphs (auto) 0.7 L Absolute Monos (auto) 0.3 Absolute Eos (auto) 0 Absolute Basos (auto) 0.1 Absolute Nucleated RBC 0 Nucleated RBC % 0.1 INR (Anticoag Therapy) 1.42 H APTT 25.4 L Sodium 137 Potassium 6.0 H Chloride 113 H Carbon Dioxide 20 L Anion Gap 4 BUN 47 H Creatinine 0.88 Est GFR ( Amer) 76.0 Est GFR (Non-Af Amer) 62.8 BUN/Creatinine Ratio 53.4 H Glucose 238 H POC Glucose (mg/dL) Calcium 7.9 L Magnesium Total Bilirubin 0.70 AST 12 L ALT 14 Alkaline Phosphatase 87 Ammonia Total Protein 4.3 L Albumin 2.7 L Globulin 1.6 L Albumin/Globulin Ratio 1.7 Lipase 19 Blood Type Antibody Screen Crossmatch 05/14/18 05/14/18 05/14/18 11:39 11:39 15:43 WBC RBC Hgb Hct MCV MCH MCHC RDW Plt Count MPV Neut % (Auto) Lymph % (Auto) [place] % (Auto) Eos % (Auto) Baso % (Auto) Absolute Neuts (auto) Absolute Lymphs (auto) Absolute Monos (auto) Absolute Eos (auto) Absolute Basos (auto) Absolute Nucleated RBC Nucleated RBC % INR (Anticoag Therapy) APTT Sodium Potassium Chloride Carbon Dioxide Anion Gap BUN Creatinine Est GFR ( Amer) Est GFR (Non-Af Amer) BUN/Creatinine Ratio Glucose POC Glucose (mg/dL) 295 H Calcium Magnesium Total Bilirubin AST ALT Alkaline Phosphatase Ammonia 71 H Total Protein Albumin Globulin Albumin/Globulin Ratio Lipase Blood Type B Positive Antibody Screen Negative Crossmatch See Detail 05/14/18 05/14/18 05/14/18 16:46 16:47 17:51 WBC RBC Hgb Hct MCV MCH MCHC RDW Plt Count MPV Neut % (Auto) Lymph % (Auto) [place] % (Auto) Eos % (Auto) Baso % (Auto) Absolute Neuts (auto) Absolute Lymphs (auto) Absolute Monos (auto) Absolute Eos (auto) Absolute Basos (auto) Absolute Nucleated RBC Nucleated RBC % INR (Anticoag Therapy) APTT Sodium 139 Potassium 5.0 Chloride 114 H Carbon Dioxide 21 L Anion Gap 4 BUN 50 H Creatinine 0.90 Est GFR ( Amer) 74.1 Est GFR (Non-Af Amer) 61.2 BUN/Creatinine Ratio 55.6 H Glucose 240 H POC Glucose (mg/dL) 252 H 241 H Calcium 7.4 L Magnesium Total Bilirubin AST ALT Alkaline Phosphatase Ammonia Total Protein Albumin Globulin Albumin/Globulin Ratio Lipase Blood Type Antibody Screen Crossmatch 05/14/18 05/14/18 05/14/18 19:03 19:38 21:30 WBC RBC Hgb 8.0 L Hct 24 L MCV MCH MCHC RDW Plt Count MPV Neut % (Auto) Lymph % (Auto) [place] % (Auto) Eos % (Auto) Baso % (Auto) Absolute Neuts (auto) Absolute Lymphs (auto) Absolute Monos (auto) Absolute Eos (auto) Absolute Basos (auto) Absolute Nucleated RBC Nucleated RBC % INR (Anticoag Therapy) APTT Sodium Potassium Chloride Carbon Dioxide Anion Gap BUN Creatinine Est GFR ( Amer) Est GFR (Non-Af Amer) BUN/Creatinine Ratio Glucose POC Glucose (mg/dL) 243 H 240 H Calcium Magnesium Total Bilirubin AST ALT Alkaline Phosphatase Ammonia Total Protein Albumin Globulin Albumin/Globulin Ratio Lipase Blood Type Antibody Screen Crossmatch 05/15/18 05/15/18 05/15/18 00:21 03:30 03:30 WBC 5.4 RBC 2.77 L Hgb 8.1 L Hct 25 L MCV 89 MCH 29 MCHC 33 RDW 17 H Plt Count 182 MPV 8.3 Neut % (Auto) 65.5 Lymph % (Auto) 19.2 [place] % (Auto) 10.9 Eos % (Auto) 2.0 Baso % (Auto) 2.4 Absolute Neuts (auto) 3.5 Absolute Lymphs (auto) 1.0 Absolute Monos (auto) 0.6 Absolute Eos (auto) 0.1 Absolute Basos (auto) 0.1 Absolute Nucleated RBC 0 Nucleated RBC % 0.2 INR (Anticoag Therapy) APTT Sodium 140 Potassium 4.8 Chloride 111 Carbon Dioxide 23 Anion Gap 6 BUN 50 H Creatinine 1.17 H Est GFR ( Amer) 54.7 Est GFR (Non-Af Amer) 45.2 BUN/Creatinine Ratio 42.7 H Glucose 188 H POC Glucose (mg/dL) 193 H Calcium 7.9 L Magnesium 1.6 L Total Bilirubin 0.40 AST 17 ALT 15 Alkaline Phosphatase 80 Ammonia Total Protein 4.8 L Albumin 3.1 L Globulin 1.7 L Albumin/Globulin Ratio 1.8 Lipase Blood Type Antibody Screen Crossmatch 05/15/18 05/15/18 07:41 09:33 WBC RBC Hgb 7.9 L Hct 23 L MCV MCH MCHC RDW Plt Count MPV Neut % (Auto) Lymph % (Auto) [place] % (Auto) Eos % (Auto) Baso % (Auto) Absolute Neuts (auto) Absolute Lymphs (auto) Absolute Monos (auto) Absolute Eos (auto) Absolute Basos (auto) Absolute Nucleated RBC Nucleated RBC % INR (Anticoag Therapy) APTT Sodium Potassium Chloride Carbon Dioxide Anion Gap BUN Creatinine Est GFR ( Amer) Est GFR (Non-Af Amer) BUN/Creatinine Ratio Glucose POC Glucose (mg/dL) 199 H Calcium Magnesium Total Bilirubin AST ALT Alkaline Phosphatase Ammonia Total Protein Albumin Globulin Albumin/Globulin Ratio Lipase Blood Type Antibody Screen Crossmatch Vital Signs: Temp Pulse Resp BP Pulse Ox 97.7 F 60 23 105/32 97 05/15/18 08:00 05/15/18 09:00 05/15/18 09:00 05/15/18 09:00 05/15/18 09:00 Exam: Exam: Mildly ill appearing 73 yo female in NAD HEENT: MMM CV: RRR, not m/r/g Resp: CTA, no w/c/r Abd: soft, epigastric TTP Ext: no edema] Assessment: [73 yo female with metastatic RCC currently treated with nivolumab who was admitted for a GIB who presented with hematemesis. She is now s/p upper endoscopy which demonstrated multiple ulcerations, 2 of which were clipped.] Plan: [1. Upper GIB - multiple gastric ulcerations s/p endoscopy with clipping - s/p transfusion of 3U PRBCs and 2U FFP - Hgb stable overnight - cont Protonix drip, stop octreotide - start clear liquids - cont to monitor H/H 2. Metastatic RCC - CT abd/pelvis suggestive of progression, but difficult to make direct comparison as this scan was without contrast - will require contrasted CT C/A/P prior to next cycle of nivolumab 3. IDDM - cont SS humalog 4. DVT prophylaxis - hold chemical prophylaxis at this time in the setting of acute bleeding - SCDs] 5. DNR Dispo: transfer to medical floor and start to advance diet
[2018-05-15 16:01] LABS: Hematocrit 23 % (35-47); Hemoglobin 7.6 g/dl (12.0-16.0)
--- NOTE | 2018-05-15 16:39 | PN ---
Progress Note - Progress Note Date of Service: 05/15/18 Note: doing well, no n/v; still with maroon stools; no pain; feels better overall VS; 96.6, 116/38, 64, 18 nad, alert +bs, soft, nt/nd hgb 8.1 to 7.9, bun 50 from 54 cr 1.17 UGI bleed, stable; on ppi, advance diet, follow closely Ricky Marcos MD [facility] [phone]
[2018-05-16] MEDS: Pantoprazole* 80 mg IN NS 80 MG/250 ML BAG IVPB SCH ×3 (00:33→16:47)
[2018-05-16] MEDS: Levothyroxine TAB* 137 MCG TAB PO SCH (06:10)
[2018-05-16 06:17] LABS: ABS Basophils 0.1 10^3/ul (0-0.2); ABS Eosinophils 0.2 10^3/ul (0-0.6); ABS Lymphocytes 0.6 10^3/ul (1.0-4.8); ABS Monocytes 0.4 10^3/ul (0-0.8); ABS Neutrophils 3.3 10^3/ul (1.5-7.7); ABS Nucleated RBC 0 10^3/ul; Eosinophil % 4.7 %; Hematocrit 22 % (35-47); Hemoglobin 7.2 g/dl (12.0-16.0); Lymphocyte % 13.3 %; Mean Corpuscular HGB Conc 33 g/dl (31-36); Mean Corpuscular Hemoglobin 30 pg (27-31); Mean Corpuscular Volume 90 fL (80-97); Mean Platelet Volume 7.5 fL (7.4-10.4); Nucleated Red Blood Cells % 0.1; Platelet Count 181 10^3/ul (150-450); Red Blood Count 2.42 10^6/ul (4.00-5.40); Red Cell Distribution Width 17 % (10.5-15); White Blood Count 4.6 10^3/ul (3.5-10.8)
[2018-05-16 06:37] LABS: Albumin/Globulin Ratio 1.9 (1-3); BUN/Creatinine Ratio 32.7 (8-20); Calcium 7.4 mg/dL (8.6-10.3); EGFR African American 67.1 (>60); EGFR Non-African American 55.5 (>60); Globulin 1.6 g/dL (2-4); Potassium 4.6 mmol/L (3.5-5.0); Total Bilirubin 0.4 mg/dL (0.2-1.0); Total Protein 4.6 g/dL (6.4-8.9)
[2018-05-16] MEDS: Liothyronine TAB* 5 MCG PO SCH (09:08)
[2018-05-16] MEDS: Insulin LISPRO* 1 UNITS UNIT SUBCUT SCH (09:08)
[2018-05-16] MEDS: metFORMIN* 1,000 MG TAB PO SCH (17:41)
[2018-05-16] MEDS ORDERED: Melatonin 3 MG TAB PO PRN (20:56)
[2018-05-17] MEDS: Pantoprazole* 80 mg IN NS 80 MG/250 ML BAG IVPB SCH (02:31)
[2018-05-17] MEDS: Levothyroxine TAB* 137 MCG TAB PO SCH (05:02)
[2018-05-17 05:39] LABS: Hematocrit 25 % (35-47); Hemoglobin 8.5 g/dl (12.0-16.0)
[2018-05-17] MEDS ORDERED: HYDROmorphone INJ1* 1 MG/ML SYRINGE IV SLOW PU PRN (08:38)
[2018-05-17 09:00] VITALS: BP 126/40
[2018-05-17] MEDS: Liothyronine TAB* 5 MCG PO SCH (10:16)
[2018-05-17] MEDS: metFORMIN* 1,000 MG TAB PO SCH (10:16)
--- NOTE | 2018-05-17 10:36 | DS ---
- Discharge Summary ADMIT DATE: 05/14/2018 DISCHARGE DATE: 05/17/2018 DISCHARGE DIAGNOSIS: 1. progressive metastatic renal cell carcinoma 2. upper GI bleed with several gastric erosions 3. home with hospice DISCHARGE MEDICATIONS: Home Medications Medication Instructions Recorded Confirmed Type Cyanocobalamin (Vitamin B-12) 1,000 mcg SL DAILY 09/10/14 05/14/18 History [Vitamin B-12] Liothyronine TAB* [Cytomel TAB*] 5 mcg PO DAILY 09/10/14 05/14/18 History Lysine [l-Lysine] 474 mg PO TID 09/10/14 05/14/18 History Magnesium Oxide 200 mg PO TID 09/10/14 05/14/18 History Melatonin (NF) 6 mg PO BEDTIME 09/10/14 05/14/18 History Cranberry Conc/C/Bacill Coag 1 cap PO TID 04/04/18 05/14/18 History [Cranberry Tablet] Iodine/Potassium Iodide [Iodine 5% 3 drop PO DAILY 04/04/18 05/14/18 History Strong Solution] Metformin HCl [Metformin ER 1,000 mg PO BID 04/04/18 05/14/18 History Gastric] Blue-Green Algae [Spirulina] 800 mg PO TID 05/14/18 05/14/18 History Cholecalciferol (Vitamin D3) 5,000 unit PO TID 05/14/18 05/14/18 History [Vitamin D3] Flaxseed Oil [[place]-3 Flaxseed Oil] 2,000 mg PO DAILY 05/14/18 05/14/18 History [place] [[place]] 900 mg PO DAILY 05/14/18 05/14/18 History Levothyroxine TAB* [Synthroid 137 137 mcg PO DAILY 05/14/18 05/14/18 History MCG TAB*] [place]-3 Fatty Acids/Fish Oil 1 cap PO DAILY 05/14/18 05/14/18 History [[place] 3 1,000 mg Softgel] Red Yeast Rice 2 tab PO DAILY 05/14/18 05/14/18 History Vitamin E Mixed [Vitamin E] 400 unit PO TID 05/14/18 05/14/18 History Zinc 25 mg PO TID 05/14/18 05/14/18 History Hydromorphone HCl [Dilaudid] 2 mg PO Q4H PRN #60 tablet MDD 12 05/17/18 Rx mg Omeprazole CAP (NF) [Prilosec CAP* 20 mg PO BID #60 cap. 05/17/18 Rx 20 MG] DISCHARGE FOLLOW UP: HOME WITH HOSPICE HOSPITAL COURSE: Emma is a 73 yo F w long standing renal cell CA who has previously deferred therapy, though did recently agree to try immunotherapy with nivolumab and has had 3 cycles. She presented with massive hematemesis and was found to have multiple gastric erosions, 2 of which were clipped, and imaging consistent with marked progression of disease. She was transfused and has maintained a stable hemoglobin. She is unwilling to try other therapies for her renal cell cancer and so has appropriately opted for a palliative approach with home hospice. She will go home on a BID PPI with dilaudid for pain control. She and her family were very at peace with this decision. >30 mins spent, >50% in face to face counseling
== END 2018-05-17 11:30 | disposition hospice, home (50) | DRG 378 ==
LOC: ED 11:15 → ICU 13:11 → MED 05-15 14:07
PROVIDERS: ADMIT Internal Medicine; ATTEND Internal Medicine Hematology & Oncology
PROC: 0W3P8ZZ Control Bleeding in Gastrointestinal Tract, Via Natural or Artificial Opening Endoscopic (ICD-10-PCS; principal; 2018-05-14)
PROC: 30233N1 Transfusion of Nonautologous Red Blood Cells into Peripheral Vein, Percutaneous Approach (ICD-10-PCS; 2018-05-14)
PROC: 30233L1 Transfusion of Nonautologous Fresh Plasma into Peripheral Vein, Percutaneous Approach (ICD-10-PCS; 2018-05-14)
DX: K25.4 Chronic or unspecified gastric ulcer with hemorrhage (principal); C64.9 Malignant neoplasm of unspecified kidney, except renal pelvis; C78.00 Secondary malignant neoplasm of unspecified lung; C78.89 Secondary malignant neoplasm of other digestive organs; C78.7 Secondary malignant neoplasm of liver and intrahepatic bile duct; C79.89 Secondary malignant neoplasm of other specified sites; I50.32 Chronic diastolic (congestive) heart failure; E87.5 Hyperkalemia; E11.9 Type 2 diabetes mellitus without complications; M19.90 Unspecified osteoarthritis, unspecified site; E89.0 Postprocedural hypothyroidism; I11.0 Hypertensive heart disease with heart failure; K44.9 Diaphragmatic hernia without obstruction or gangrene; K29.71 Gastritis, unspecified, with bleeding; Z66 Do not resuscitate; Z88.5 Allergy status to narcotic agent; Z88.0 Allergy status to penicillin; Z90.710 Acquired absence of both cervix and uterus; Z90.49 Acquired absence of other specified parts of digestive tract; Z90.5 Acquired absence of kidney; Z87.891 Personal history of nicotine dependence; Z90.721 Acquired absence of ovaries, unilateral; Z83.3 Family history of diabetes mellitus; Z82.49 Family history of ischemic heart disease and other diseases of the circulatory system; Z80.9 Family history of malignant neoplasm, unspecified; Z82.0 Family history of epilepsy and other diseases of the nervous system; Z86.010 Personal history of colon polyps; Z79.84 Long term (current) use of oral hypoglycemic drugs
CPT/HCPCS: 36415; 74176; 80048; 80053; 82140; 83690; 83735; 85014; 85018; 85025; 85610; 85730; 86850; 86900; 86901; 86922; 86927; 87641; 93005; 99156; 99157; 99233; 99285; A9270-GY; J1170; J1940; J2250; J2354; J2765; J3010; J3475; P9017; P9040